=== PATIENT | female | born 1950 | race Caucasian/White ===

== ENCOUNTER 2020-11-15 09:25 | Outpatient (REF) | payer MEDICARE, SELFPAY ==
[2020-11-15 11:13] LABS: MANUAL DIFF FLAG NO
[2020-11-15 11:47] LABS: Basophils Absolute Auto 0.1 X10*3/uL (0.0-0.2); Basophils Percent Auto 0.8 % (0-2); Eosinophils Absolute Auto 0.1 X10*3/uL (0.0-0.4); Eosinophils Percent Auto 1.7 % (0-4); Hematocrit 40.7 % (37-47); Hemoglobin 13.4 g/dl (12.0-16.0); Imm Gran Abs Auto 0.01 X10*3/uL (0.00-0.03); Imm Gran Pct Auto 0.2 % (0.0-0.4); Lymphocytes Absolute Auto 2.7 X10*3/uL (1.2-4.9); Mean Corpuscular HGB Conc 32.9 g/dl (31.0-35.0); Mean Corpuscular Hemoglobin 31.2 pg (27.0-33.0); Mean Corpuscular Volume 94.9 fL (80-98); Monocytes Absolute Auto 0.5 X10*3/uL (0.1-1.2); Monocytes Percent Auto 7.6 % (2-11); Neutrophils Absolute Auto 2.7 X10*3/uL (2.0-8.3); Neutrophils Percent Auto 44.7 % (45-73); Platelet Count 285 X10*3/uL (160-400); Red Blood Count 4.29 X10*6/uL (4.20-5.50); Red Cell Distribution Width 12.8 % (11.0-16.0)
[2020-11-15 12:01] LABS: Thyroid Stimulating Hormone 1.06 uIU/mL (0.32-4.0); Vitamin D 25-OH Total 35.8 ng/mL (>30)
[2020-11-15 12:02] LABS: Alanine Aminotransferase 12 U/L (0-31); Albumin Level 4.4 g/dL (3.5-5.0); Alkaline Phosphatase 106 U/L (39-117); Anion Gap 12 (12-20); Aspartate Amino Transferase 18 U/L (5-31); Bilirubin Total 0.3 mg/dL (0.0-1.0); Blood Urea Nitrogen 14 mg/dL (9-16); Carbon Dioxide 30 mmol/L (22-29); Chloride 104 mmol/L (96-108); Cholesterol 173 mg/dL; Estimated Glomerular Filt Rate > 60; Glucose Fasting 89 mg/dL (60-99); HDL Cholesterol 52 mg/dL; LDL Cholesterol Calculated 86 mg/dl; Potassium 4.6 mmol/L (3.3-5.1); Sodium 141 mmol/L (135-145); Total Protein 7.7 g/dL (6.5-8.0); Triglycerides 177 mg/dL
[2020-11-16 13:57] LABS: Calcium (PTHI) 9.3 mg/dL (8.6-10.4); PTHI 38 pg/mL (14-64)
== END 2020-11-15 09:26 | disposition home or self-care (01) ==
LOC: HO.HMGCLDS 09:25
PROVIDERS: PCP Internal Medicine; Visit Provider Internal Medicine
DX: E78.00 Pure hypercholesterolemia, unspecified (principal); E55.9 Vitamin D deficiency, unspecified; E21.3 Hyperparathyroidism, unspecified
CPT/HCPCS: 36415; 80053; 80061; 82306; 83970; 84443; 85025

== ENCOUNTER 2021-05-17 09:03 | Outpatient (REF) | payer MEDICARE, SELFPAY ==
[2021-05-17 11:34] LABS: MANUAL DIFF FLAG NO
[2021-05-17 11:48] LABS: Basophils Percent Auto 0.6 % (0-2); Eosinophils Absolute Auto 0.1 X10*3/uL (0.0-0.4); Eosinophils Percent Auto 1.5 % (0-4); Hematocrit 40.2 % (37-47); Hemoglobin 13.4 g/dl (12.0-16.0); Imm Gran Abs Auto 0.01 X10*3/uL (0.00-0.03); Imm Gran Pct Auto 0.1 % (0.0-0.4); Lymphocytes Percent Auto 44.2 % (20-40); Mean Corpuscular HGB Conc 33.3 g/dl (31.0-35.0); Mean Corpuscular Hemoglobin 31.5 pg (27.0-33.0); Mean Corpuscular Volume 94.4 fL (80-98); Monocytes Absolute Auto 0.5 X10*3/uL (0.1-1.2); Monocytes Percent Auto 7.7 % (2-11); Neutrophils Absolute Auto 3.1 X10*3/uL (2.0-8.3); Neutrophils Percent Auto 45.9 % (45-73); Platelet Count 257 X10*3/uL (160-400); Red Blood Count 4.26 X10*6/uL (4.20-5.50); Red Cell Distribution Width 13.2 % (11.0-16.0); White Blood Count 6.9 X10*3/uL (4.8-10.8)
[2021-05-17 12:11] LABS: Alanine Aminotransferase 11 U/L (0-31); Albumin Level 4.4 g/dL (3.5-5.0); Alkaline Phosphatase 95 U/L (39-117); Anion Gap 16 (12-20); Aspartate Amino Transferase 17 U/L (5-31); Bilirubin Total 0.6 mg/dL (0.0-1.0); Blood Urea Nitrogen 11 mg/dL (9-16); Calcium 9.6 mg/dL (8.4-10.2); Carbon Dioxide 25 mmol/L (22-29); Chloride 106 mmol/L (96-108); Cholesterol 153 mg/dL; Estimated Glomerular Filt Rate > 60; Glucose Fasting 93 mg/dL (60-99); HDL Cholesterol 44 mg/dL; LDL Cholesterol Calculated 87 mg/dl; Potassium 4.6 mmol/L (3.3-5.1); Sodium 142 mmol/L (135-145); Total Protein 7.5 g/dL (6.5-8.0); Triglycerides 110 mg/dL
[2021-05-17 12:19] LABS: Thyroid Stimulating Hormone 1.08 uIU/mL (0.32-4.0); Vitamin D 25-OH Total 43.4 ng/mL (>30)
[2021-05-22 06:31] LABS: Calcium (PTHI) 9.7 mg/dL (8.6-10.4); PTHI 44 pg/mL (14-64)
== END 2021-05-17 09:04 | disposition home or self-care (01) ==
LOC: HO.HMGCLDS 09:03
PROVIDERS: PCP Internal Medicine; Visit Provider Internal Medicine
DX: E78.00 Pure hypercholesterolemia, unspecified (principal); E55.9 Vitamin D deficiency, unspecified; E21.3 Hyperparathyroidism, unspecified
CPT/HCPCS: 36415; 80053; 80061; 82306; 83970; 84443; 85025

== ENCOUNTER 2021-08-31 13:26 | Outpatient (REF) | payer MEDICARE, SELFPAY ==
--- NOTE | ~2021-08-31 | MM_ITS ---
EXAMINATION: MM SCREENING DIGITAL BREAST TOMOSYNTHESIS, BILATERAL CLINICAL INFORMATION: Screening. Asymptomatic. The lifetime risk of breast cancer based on the Tyrer-Cuzick Model is 4.6%. COMPARISON: Mammography: July 16, 2019 and studies dating back to August 21, 2014 TECHNIQUE: Digital breast tomosynthesis is performed in both the craniocaudal and mediolateral oblique views along with computer-aided detection (CAD). Synthesized 2D images are generated from the tomosynthesis. FINDINGS: There are scattered areas of fibroglandular density (ACR BI-RADS breast composition Category b). There are no significant masses, abnormal calcifications, or other abnormalities. MM/MM tomosynthesis screening BI IMPRESSION: There are no significant changes from prior study. ASSESSMENT: BI-RADS 1: Negative RECOMMENDATION: Routine annual mammography screening. This patient's information was entered into a reminder system with a target due date for their next mammogram.
== END 2021-08-31 13:27 | disposition home or self-care (01) ==
LOC: HO.MAMMO 13:26
PROVIDERS: PCP Internal Medicine; Visit Provider Internal Medicine
DX: Z12.31 Encounter for screening mammogram for malignant neoplasm of breast (principal)
CPT/HCPCS: 77063; 77067

== ENCOUNTER 2022-08-18 09:49 | Outpatient (REF) | payer MEDICARE, SELFPAY ==
[2022-08-18 11:29] LABS: MANUAL DIFF FLAG NO
[2022-08-18 11:50] LABS: Basophils Absolute Auto 0.1 X10*3/uL (0.0-0.2); Basophils Percent Auto 0.9 % (0-2); Eosinophils Absolute Auto 0.1 X10*3/uL (0.0-0.4); Eosinophils Percent Auto 1.9 % (0-4); Hematocrit 40.9 % (37.0-47.0); Hemoglobin 13.6 g/dl (12.0-16.0); Imm Gran Abs Auto 0.01 X10*3/uL (0.00-0.03); Imm Gran Pct Auto 0.1 % (0.0-0.4); Lymphocytes Absolute Auto 3.6 X10*3/uL (1.2-4.9); Lymphocytes Percent Auto 52.6 % (20-40); Mean Corpuscular HGB Conc 33.3 g/dl (31.0-35.0); Mean Corpuscular Hemoglobin 31.1 pg (27.0-33.0); Mean Corpuscular Volume 93.6 fL (80.0-98.0); Mean Platelet Volume 10.2 fL (9.4-12.3); Monocytes Absolute Auto 0.6 X10*3/uL (0.1-1.2); Neutrophils Absolute Auto 2.5 x10*3/uL (2.0-8.3); Neutrophils Percent Auto 35.5 % (45-73); Platelet Count 264 X10*3/uL (160-400); Red Blood Count 4.37 X10*6/uL (4.20-5.50); Red Cell Distribution Width 12.8 % (11.0-16.0); White Blood Count 6.9 X10*3/uL (4.8-10.8)
[2022-08-18 13:35] LABS: Alanine Aminotransferase 14 U/L (0-31); Albumin Level 4.2 g/dL (3.5-5.0); Alkaline Phosphatase 107 U/L (39-117); Anion Gap 13 (12-20); Aspartate Amino Transferase 18 U/L (5-31); Bilirubin Total 0.4 mg/dL (0.0-1.0); Blood Urea Nitrogen 11 mg/dL (9-16); Calcium 9.3 mg/dL (8.4-10.2); Carbon Dioxide 28 mmol/L (22-29); Chloride 105 mmol/L (96-108); Cholesterol 170 mg/dL; Estimated Glomerular Filt Rate > 60; Glucose Fasting 102 mg/dL (60-99); HDL Cholesterol 45 mg/dL; LDL Cholesterol Calculated 96 mg/dl; Potassium 4.5 mmol/L (3.3-5.1); Sodium 141 mmol/L (135-145); Thyroid Stimulating Hormone 1.05 uIU/mL (0.32-4.0); Total Protein 7.5 g/dL (6.5-8.0); Triglycerides 147 mg/dL; Vitamin D 25-OH Total 36.5 ng/mL (>30)
== END 2022-08-18 09:50 | disposition home or self-care (01) ==
LOC: HO.HMGCLDS 09:49
PROVIDERS: PCP Internal Medicine; Visit Provider Internal Medicine
DX: E78.00 Pure hypercholesterolemia, unspecified (principal); E55.9 Vitamin D deficiency, unspecified
CPT/HCPCS: 36415; 80053; 80061; 82306; 84443; 85025

== ENCOUNTER 2022-09-20 08:36 | Outpatient (REF) | payer MEDICARE, SELFPAY ==
--- NOTE | ~2022-09-20 | MM_ITS ---
EXAMINATION: MM SCREENING DIGITAL BREAST TOMOSYNTHESIS, BILATERAL CLINICAL INFORMATION: Screening. Asymptomatic. The lifetime risk of breast cancer based on the Tyrer-Cuzick Model is 5%. COMPARISON: Mammography: 08/31/2021, 07/16/2019, 06/19/2018 TECHNIQUE: Digital breast tomosynthesis is performed in both the craniocaudal and mediolateral oblique views along with computer-aided detection (CAD). Synthesized 2D images are generated from the tomosynthesis. FINDINGS: There are scattered areas of fibroglandular density (ACR BI-RADS breast composition Category b). There are no significant masses, abnormal calcifications, or other abnormalities. Parenchymal pattern is similar to prior studies. There is no developing density or architectural abnormality. The axilla and skin contours are unremarkable. No significant changes. MM/MM tomosynthesis screening BI IMPRESSION: No mammographic evidence of malignancy. ASSESSMENT: BI-RADS 1: Negative RECOMMENDATION: Routine annual mammography screening. This patient's information was entered into a reminder system with a target due date for their next mammogram.
== END 2022-09-20 08:37 | disposition home or self-care (01) ==
LOC: HO.MAMMO 08:36
PROVIDERS: PCP Internal Medicine; Visit Provider Internal Medicine
DX: Z12.31 Encounter for screening mammogram for malignant neoplasm of breast (principal)
CPT/HCPCS: 77063; 77067

== ENCOUNTER → 2022-11-16 07:41 | Outpatient (REF) | payer MEDICARE, SELFPAY ==
--- NOTE | 2022-11-16 | PFT_ITS ---
INDICATION: Shortness of breath. SPIROMETRY: FEV1 to FVC of 88% with an FEV1 of 1.71 L, which is 84% predicted and FVC of 1.96 L which is 73% predicted. No significant response to bronchodilators noted. Maximum voluntary ventilation 96% predicted. LUNG VOLUMES: Total lung capacity 66% predicted with an expiratory residual volume of 73% predicted. DIFFUSION CAPACITY: DLCO 87% predicted. COMPARISON: None available. INTERPRETATION: There is no obstructive ventilatory defect. No significant response to bronchodilator noted and a normal maximum voluntary ventilation. However, the patient does have a restrictive ventilatory defect consistent with moderate restricted lung disease. Underlying parenchymal lung conditions need to be considered. Diffusion capacity is within normal limits. Clinical correlation warranted. Vikram Skelton MD MR/MODL / [id number]
--- NOTE | 2022-11-16 07:58 | CA_ITS ---
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 The calculated ejection fraction is 66% by biplane method. - Evidence suggests grade I (mild) diastolic dysfunction. - No obvious valvular pathology seen on this study. - Mild pulmonary hypertension is present. Findings Left Ventricle Normal left ventricular cavity size. The left ventricular systolic function is normal. The calculated ejection fraction is 66% by biplane method. There is no evidence of regional wall motion abnormalities. E/E prime ratio is >15, consistent with elevated filling pressures. Evidence suggests grade I (mild) diastolic dysfunction. There is mild septal asymmetric hypertrophy. LV peak GLS -22.5%. Right Ventricle Normal right ventricular cavity size and systolic function. Atria Both atria are normal in size. Aortic Valve There is a normal trileaflet aortic valve. There is no aortic valve stenosis. There is no aortic valve regurgitation. Mitral Valve The mitral valve appears normal. There is trace mitral valve regurgitation. There is no mitral valve stenosis. Pulmonic Valve The pulmonic valve is likely normal. Tricuspid Valve Normal tricuspid valve structure. There is mild tricuspid valve regurgitation. Mild pulmonary hypertension is present. Great Vessels The asc aorta is normal in size. Venous The inferior vena cava is normal in size and collapses greater than 50% with inspiration. Pericardium/Pleural There is no evidence of pericardial effusion. Prior Study Comparison No prior study available for comparison. Recommendations, Care & Conclusions No obvious valvular pathology seen on this study. Measurements 2D Linear Measurements IVSd: 1.11 0.6-0.9/0.6-1.0 cm LVIDd: 3.77 3.9-5.3/4.2-5.9 cm LVIDd Index: 2.04 2.4-3.2/2.2-3.1 cm/m2 LVIDs: 1.99 2.0-3.6 cm LVPWd: 0.90 0.7-1.1 cm LA Diam: 3.20 2.7-3.8/3.0-4.0 cm LAIDs Index: 1.73 1.5-2.3 cm/m2 LV Mass: 144.99 67-162/88-224 g LV Mass Index: 78.38 43-95/49-115 g/m2 LVOT Diam: 1.90 3.0+(-)1.3 cm 2D Systolic Function EF 4C: 66.40 >55% EF 2C: 63.10 >55% EF BiP: 66.20 >55% Mitral Valve MV Pk E: 0.90 MV PK A: 1.09 MV Decel Time: 189.00 E/A: 0.80 E'Lateral: 7.62 E'Medial: 5.00 E/E' Med: 18.10 E/E' Lat: 11.90 PHT: 55.00 MVA PHT: 4.00 Decel Brooke: 4.78 Aortic Valve AoV Pk Yair: 1.60 AoV Mn Yair: 1.05 AoV VTI: 0.38 AoV Pk Grad: 10.00 Aov Mn Grad: 5.00 NAHID Cont.VTI: 2.02 LVOT LVOT Pk Yair: 1.07 LVOT Mn Yair: 0.70 LVOT VTI: 0.27 LVOT Pk Grad: 5.00 LVOT Mn Grad: 2.00 LVOT Diam: 1.90 LVOT Area: 2.84 Diastolic Function MV Pk E: 0.90 MV Pk A: 1.09 E/A: 0.80 E'Medial: 5.00 E/E' Med: 18.10 E' Laterial: 7.62 E/E' Lat: 11.90 Right Ventricle TAPSE (mm): 2.73 TVS' Yair: 12.40 Tricuspid Valve TR Pk Yair: 3.11 TR Pk Grad: 39.00 RA Press: 8.00 RVSP: 47.00 Great Vessels Aorta Sinus of Valsalva: 2.81 2.0-3.[address] [place]: 2.24 1.7-3.4 cm Ao Asc: 3.20 2.1-3.4 cm Updated in Other Vendor System with Status of Final Kyle Whitman MD electronically signed on 11/18/2022 11:00:18 AM with status of Final
== END ==
LOC: HO.CARD 07:41
PROVIDERS: PCP Internal Medicine; Visit Provider Internal Medicine
DX: R06.02 Shortness of breath (principal)
CPT/HCPCS: 93306; 93356; 94060; 94727; 94729

== ENCOUNTER 2023-05-07 09:17 | Outpatient (REF) | payer MEDICARE, SELFPAY ==
--- NOTE | ~2023-05-07 | XR_ITS ---
EXAMINATION: XR CHEST CLINICAL INFORMATION: Shortness of breath COMPARISON: None available. TECHNIQUE: 2 views of the chest were obtained. FINDINGS: Heart size is normal. There is no gross pneumothorax. No pleural effusion. No focal consolidation to suggest pneumonia. Moderate degenerative changes in the thoracic spine with thoracolumbar scoliosis. Degenerative changes on limited imaging of the right shoulder with soft tissue calcification lateral to the humeral head suggestive of rotator cuff pathology. XR/XR chest 2V IMPRESSION: No evidence of pneumonia. Degenerative changes on limited imaging of the right shoulder with soft tissue calcification lateral to the humeral head suggestive of rotator cuff pathology.
[2023-05-07 10:11] LABS: MANUAL DIFF FLAG NO
[2023-05-07 10:19] LABS: Basophils Percent Auto 0.7 % (0-2); Eosinophils Absolute Auto 0.1 X10*3/uL (0.0-0.4); Eosinophils Percent Auto 1.8 % (0-4); Hematocrit 40.3 % (37.0-47.0); Hemoglobin 13.5 g/dl (12.0-16.0); Imm Gran Abs Auto 0.02 X10*3/uL (0.00-0.03); Imm Gran Pct Auto 0.3 % (0.0-0.4); Lymphocytes Absolute Auto 2.7 X10*3/uL (1.2-4.9); Lymphocytes Percent Auto 44.6 % (20-40); Mean Corpuscular HGB Conc 33.5 g/dl (31.0-35.0); Mean Corpuscular Hemoglobin 31.8 pg (27.0-33.0); Mean Platelet Volume 9.5 fL (9.4-12.3); Monocytes Absolute Auto 0.6 X10*3/uL (0.1-1.2); Neutrophils Absolute Auto 2.7 x10*3/uL (2.0-8.3); Neutrophils Percent Auto 43.6 % (45-73); Platelet Count 260 X10*3/uL (160-400); Red Blood Count 4.24 X10*6/uL (4.20-5.50); Red Cell Distribution Width 12.9 % (11.0-16.0); White Blood Count 6.1 X10*3/uL (4.8-10.8)
[2023-05-07 10:22] LABS: Prothrombin Time 11.6 SEC (11.1-13.3)
[2023-05-07 11:01] LABS: Alanine Aminotransferase 9 U/L (0-31); Albumin Level 4.2 g/dL (3.5-5.0); Alkaline Phosphatase 99 U/L (39-117); Anion Gap 11 (12-20); Aspartate Amino Transferase 18 U/L (5-31); Bilirubin Total 0.3 mg/dL (0.0-1.0); Blood Urea Nitrogen 16 mg/dL (9-16); Calcium 9.9 mg/dL (8.4-10.2); Carbon Dioxide 29 mmol/L (22-29); Chloride 105 mmol/L (96-108); Cholesterol 181 mg/dL (<200); Estimated Glomerular Filt Rate > 60; Glucose Fasting 78 mg/dL (60-99); HDL Cholesterol 50 mg/dL (>40); LDL Cholesterol Calculated 89 mg/dL (<100); Potassium 4.2 mmol/L (3.3-5.1); Sodium 141 mmol/L (135-145); Triglycerides 211 mg/dL (<150)
[2023-05-07 11:17] LABS: Vitamin D 25-OH Total 43.9 ng/mL (>30)
== END 2023-05-07 09:18 | disposition home or self-care (01) ==
LOC: HO.RESP 09:17
PROVIDERS: PCP Internal Medicine; Visit Provider Internal Medicine
DX: E78.00 Pure hypercholesterolemia, unspecified (principal); E55.9 Vitamin D deficiency, unspecified; R06.02 Shortness of breath; E21.3 Hyperparathyroidism, unspecified
CPT/HCPCS: 36415; 71046; 80053; 80061; 82306; 84443; 85025; 85610

== ENCOUNTER 2023-09-26 09:05 | Outpatient (REF) | payer MEDICARE, SELFPAY | END 2023-09-26 09:06 | disposition home or self-care (01) | LOC: HO.MAMMO 09:05 | PROVIDERS: PCP Internal Medicine; Visit Provider Internal Medicine | DX: Z12.31 Encounter for screening mammogram for malignant neoplasm of breast (principal) | CPT/HCPCS: 77063; 77067 ==

== ENCOUNTER → 2023-09-26 09:30 | Outpatient (BNV) | payer MEDICARE, SELFPAY | PROVIDERS: PCP Internal Medicine; Visit Provider Radiology Diagnostic Radiology | DX: Z12.31 Encounter for screening mammogram for malignant neoplasm of breast (principal) | CPT/HCPCS: 77063; 77067 ==

== ENCOUNTER 2023-10-05 10:29 | Outpatient (REF) | payer MEDICARE, SELFPAY ==
[2023-10-05 14:21] LABS: Parathyroid Hormone Intact 44.4 pg/mL (8.7-77.1)
== END 2023-10-05 10:30 | disposition home or self-care (01) ==
LOC: HO.HMGCLDS 10:29
PROVIDERS: PCP Internal Medicine; Visit Provider Internal Medicine
DX: E21.3 Hyperparathyroidism, unspecified (principal)
CPT/HCPCS: 36415; 83970

== ENCOUNTER 2023-10-10 10:12 | Outpatient (REF) | payer MEDICARE, SELFPAY ==
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
== END 2023-10-10 10:13 | disposition home or self-care (01) ==
LOC: HO.XRAY 10:12
PROVIDERS: PCP Internal Medicine; Visit Provider Internal Medicine
DX: E66.09 Other obesity due to excess calories (principal)
CPT/HCPCS: 73562

== ENCOUNTER 2024-04-03 08:54 | Outpatient (REF) | payer MEDICARE, SELFPAY ==
[2024-04-03 10:49] LABS: MANUAL DIFF FLAG NO
[2024-04-03 11:17] LABS: Basophils Absolute Auto 0.1 X10*3/uL (0.0-0.2); Eosinophils Absolute Auto 0.2 X10*3/uL (0.0-0.4); Eosinophils Percent Auto 2.6 % (0-4); Hematocrit 40.4 % (37.0-47.0); Hemoglobin 13.8 g/dl (12.0-16.0); Imm Gran Abs Auto 0.02 X10*3/uL (0.00-0.03); Imm Gran Pct Auto 0.3 % (0.0-0.4); Lymphocytes Absolute Auto 2.9 X10*3/uL (1.2-4.9); Lymphocytes Percent Auto 45.7 % (20-40); Mean Corpuscular HGB Conc 34.2 g/dl (31.0-35.0); Mean Corpuscular Hemoglobin 31.5 pg (27.0-33.0); Mean Corpuscular Volume 92.2 fL (80.0-98.0); Mean Platelet Volume 10.4 fL (9.4-12.3); Monocytes Absolute Auto 0.6 X10*3/uL (0.1-1.2); Monocytes Percent Auto 9.3 % (2-11); Neutrophils Absolute Auto 2.6 x10*3/uL (2.0-8.3); Neutrophils Percent Auto 41.1 % (45-73); Platelet Count 267 X10*3/uL (160-400); Red Blood Count 4.38 X10*6/uL (4.20-5.50); Red Cell Distribution Width 12.9 % (11.0-16.0); White Blood Count 6.3 X10*3/uL (4.8-10.8)
[2024-04-03 11:38] LABS: Parathyroid Hormone Intact 67.4 pg/mL (8.7-77.1)
[2024-04-03 11:49] LABS: Alanine Aminotransferase 12 U/L (0-31); Albumin Level 4.3 g/dL (3.5-5.0); Alkaline Phosphatase 93 U/L (39-117); Anion Gap 14 (12-20); Aspartate Amino Transferase 21 U/L (5-31); Bilirubin Total 0.6 mg/dL (0.0-1.0); Blood Urea Nitrogen 19 mg/dL (9-16); Calcium 9.4 mg/dL (8.4-10.2); Carbon Dioxide 24 mmol/L (22-29); Chloride 107 mmol/L (96-108); Cholesterol 171 mg/dL (<200); Estimated Glomerular Filt Rate > 60; Glucose Fasting 96 mg/dL (60-99); HDL Cholesterol 46 mg/dL (>40); LDL Cholesterol Calculated 104 mg/dL (<100); Potassium 4.1 mmol/L (3.3-5.1); Sodium 141 mmol/L (135-145); Total Protein 7.8 g/dL (6.5-8.0); Triglycerides 107 mg/dL (<150)
[2024-04-03 11:59] LABS: Vitamin D 25-OH Total 37.5 ng/mL (>30)
== END 2024-04-03 08:55 | disposition home or self-care (01) ==
LOC: HO.HMGCLDS 08:54
PROVIDERS: PCP Internal Medicine; Visit Provider Internal Medicine
DX: E21.3 Hyperparathyroidism, unspecified (principal); E78.00 Pure hypercholesterolemia, unspecified; E55.9 Vitamin D deficiency, unspecified
CPT/HCPCS: 36415; 80053; 80061; 82306; 83970; 84443; 85025

== ENCOUNTER 2024-09-30 08:50 | Outpatient (REF) | payer MEDICARE, SELFPAY | END 2024-09-30 08:51 | disposition home or self-care (01) | LOC: HO.MAMMO 08:50 | PROVIDERS: PCP Internal Medicine; Visit Provider Internal Medicine | DX: Z12.31 Encounter for screening mammogram for malignant neoplasm of breast (principal) | CPT/HCPCS: 77063; 77067 ==

== ENCOUNTER → 2024-09-30 09:00 | Outpatient (BNV) | payer MEDICARE, SELFPAY | PROVIDERS: PCP Internal Medicine; Visit Provider Internal Medicine | DX: Z12.31 Encounter for screening mammogram for malignant neoplasm of breast (principal) | CPT/HCPCS: 77063; 77067 ==

== ENCOUNTER 2024-10-08 09:08 | Outpatient (AMB) | payer MEDICARE, SELFPAY ==
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
[2024-10-08 09:13] VITALS: BP 126/62; PULSE 73; TEMP 36.3; O2SAT 97; BMI 35.1
--- OUTSIDE RECORDS SUMMARY | 2024-10-08 10:33 | XMS_ITS ---
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 Name Role Phone Keshav Fernandez Primary Care Provider [phone] ALLERGIES No Known Allergies REASON FOR VISIT 6 month f/u, Follow up hypercholesterolemia MEDICATIONS Medication SIG (Take, Route, Frequency, Duration) Notes Start Date End Date Status Atorvastatin Calcium 10 MG 1 tablet Oral ly Once a day Active Vitamin D 2000 UNIT 1 capsule Orally Onc e a day 07/11/2017 Active SOCIAL HISTORY Tobacco Use: Social History Observation Description Date Details (start date - stop date) Never Smoker NA - NA Sex Assigned At : Social History Observation Description Sex Assigned At Unknown Tobacco Use/Smoking Question Answer Notes Patient is a nonsmoker Additional Findings: Tobacco Non-User Cu rrent non-smoker, currently using no form of tobacco Alcohol Screen Question Answer Notes Did you have a drink contain ing alcohol in the past year? Yes How often did you have a dri nk containing alcohol in the past year? Monthly or less (1 point) How many drinks did you have on a typical day when you were drinking in the past year? 1 or 2 drinks (0 point) How often did you have 6 or more drinks on one occasion in the past year? Never (0 point) Points 1 Interpretation Negative VITAL SIGNS BMI 34.76 kg/m2 04/09/2024 Blood pressure systolic 120 mm Hg 04/09/20 24 Blood pressure diastolic 80 mm Hg 024 Height 61.50 in 04/09/2024 Weight 187 lbs 04/09/2024 Encounters Encounter Location Date Provider Diagnosis Keshav Fernandez DO, FACP [address], [place] [id number] 04/09/2024 Keshav Fernandez Hypercholesterolemia E78.00 ; Hyperparathyroidism E21.3 ; HARDY (obstructive sleep apnea) G47.33 and Vitamin D insufficiency E55.9 ASSESSMENTS Encounter Date Diagnosis Assessment Notes Treatment Notes Treatment Clinical Notes 04/09/2024 Hypercholesterolemia (ICD-10 - E78.00) 04/09/2024 Hyperparathyroidism (ICD-10 - E21.3) PTH and calcium levels are normal 04/09/2024 HARDY (obstructive sle ep apnea) (ICD-10 - G47.33) CPAP nightly 04/09/2024 Vitamin D insufficie ncy (ICD-10 - E55.9) PLAN OF TREATMENT Medication Medication Name Sig Start Date Stop Date Notes Atorvastatin Calcium 10 MG 1 tablet Orally Once a day Vitamin D 2000 UNIT 1 capsule Orally Once a day 07/11/2017 Treatment Notes Assessment Notes Hyperparathyroidism PTH and calcium leve ls are normal HARDY (obstructive sleep apnea) CPAP night ly Next Appt Details Follow Up: 6 Months, Reason: follow up visit Progress Notes * Examination Category Sub-Category Detail Notes General Examination GENERAL APPEARANCE: in no ac [place] distress, well developed, well nourished HEAD: normocephalic, atrau matic HEART: no murmurs, regular rate and rhythm, S1, S2 normal LUNGS: clear to auscultatio n bilaterally ABDOMEN: normal, bowel sounds present, soft, nontender, nondistended SKIN: warm and dry EXTREMITIES: no edema PSYCH: alert, oriented, cog nitive function intact
--- OUTSIDE RECORDS SUMMARY | 2024-10-08 10:33 | XMS_ITS | Patient Health Record ---
[facility] Organization [facility] Address [address] [place] [address] Care Team Providers Care Stretch Press Operator Name Role Phone Edson Aj Primary Care Provider [phone] Vibha Marquez Unavailable [phone] Allergies No Known Allergies Reason For Referral No Information Medications Medication SIG (Take, Route, Frequency, Duration) Notes Start Date End Date Status Piroxicam 20 MG 1 capsule with food Orally Once a day for 30 day(s) Unknown Pravastatin Sodium 10 MG 1 tablet Orally Once a day for 30 day(s) Unknown Lamisil 250 250mg 1 tablet oral daily for 90 days 11/29/2016 Unknown vitamin D Unknown Vitamin D3 Active Atorvastatin Calcium Active Social History Tobacco Use: Social History Observation Description Date Details (start date - stop date) Never Smoker NA - NA Tobacco Use/Smoking Question Answer Notes Are you a: nonsmoker Additional Findings: Tobacco Non-User Current no n-smoker Tobacco use other than smoking: Question Answer Notes Are you an other tobacco user? No Problems Problem Type SNOMED Code ICD Code Onset Dates Problem Status W/U Status Risk Notes Problem Acquired hallux valgus (46311421) Hallux valgus (acquired), right foot (M20.11) Active confirmed Vital Signs Blood pressure diastolic 82 mm Hg 09/24/2024 Height 5 ft 2 in in 09/24/2024 Blood pressure systolic 137 mm Hg 09/24/2024 Weight 185 lbs 09/24/2024 BMI 33.83 kg/m2 09/24/2024 Encounters Encounter Location Date Provider Diagnosis [facility] [address] [place] [address] 09/24/2024 Vibha Marquez Pain in right toe(s) M79.674 ; Onychomycosis B35.1 ; Pain in left toe(s) M79.675 and Ingrown nail L60.0 [facility] [address] [place] [address] 09/09/2024 Vibha Marquez Assessments Encounter Date Diagnosis (ICD Code) Assessment Notes Treatment Notes Treatment Clinical Notes Section Notes 09/24/2024 Pain in right toe(s) (ICD-10 - M79.674) 09/24/2024 Onychomycosis (ICD-10 - B35.1) 09/24/2024 Pain in left toe(s) (ICD-10 - M79.675) 09/24/2024 Ingrown nail (ICD-10 - L60.0) Plan Of Treatment Pending Test Test Name Order Date X ray : Foot, left 2V 10/23/2012 X ray : Foot, right 2V 10/23/2012 36566-Eeozzdst Plate 10/23/2012 68769-Lxyjvrcd Plate 11/15/2016 44066-Kkjpfhlk Plate 11/29/2016 86113- Debride <25 sq cm 11/29/2016 Next Appt Details Provider Name:Vibha merritt, 03/24/2025 09:00:00 AM, [address] [place], [address], Insurance Providers Payer Name Payer Address Payer Phone Subscriber Number Group Number Insured Name Patient Relationship to Insured Coverage Start Date Coverage End Date Medicare [facility] [address] [place] [address] [id number] Mayra Peguero Self - patient is the insured 7 [employer] [address] [place] [address] [id number] Mayra Peguero Self - patient is the insured Medical (General) History Medical History History ICD Code cholesterol chicken pox Anemia Measles Chicken pox Surgical History Surgery Date(Month/Year) parathyroid
--- OUTSIDE RECORDS SUMMARY | 2024-10-08 10:33 | XMS_ITS ---
Author Organization Keshav Fernandez DO, [facility] Address [address] [place], [place] [id number] Care Team Providers Care Parking Lot Manager Name Role Phone Keshav Fernandez Primary Care Provider REASON FOR VISIT 6 month f/u Encounters Encounter Location Date Provider Diagnosis Keshav Fernandez DO, FACP [address] [place] [phone] 10/08/2024 Keshav Fernandez PLAN OF TREATMENT No Information
--- OUTSIDE RECORDS SUMMARY | 2024-10-08 10:33 | XMS_ITS ---
Author Organization Keshav Fernandez DO, [facility] Address [address] [place], [place] [id number] Care Team Providers Care Desk Interviewer Name Role Phone Keshav Fernandez Primary Care Provider RESULTS Component Value Reference Range Notes Parathyroid Hormone Intact Reviewed date:04/03/2024 05:37:32 PM Interpretation:Normal Performing Lab:[facility], [address] [place] [phone] Notes/Report: Parathyroid Hormone Intact 67.4 8.7-77.1 pg/mL REASON FOR VISIT Refill and message MEDICATIONS Medication SIG (Take, Route, Frequency, Duration) Notes Start Date End Date Status Atorvastatin Calcium 10 MG 1 tablet Oral ly Once a day for 90 days Active Encounters Encounter Location Date Provider Diagnosis Keshav Fernandez DO, [facility] [address] [place], [place] [phone] 03/28/2024 Keshav Fernandez Hyperparathyroidism E21.3 ; Hypercholesterolemia E78.00 and Vitamin D insufficiency E55.9 ASSESSMENTS Encounter Date Diagnosis Assessment Notes Treatment Notes Treatment Clinical Notes 03/28/2024 Hyperparathyroidism (ICD-10 - E21.3) 03/28/2024 Hypercholesterolemia (ICD-10 - E78.00) 03/28/2024 Vitamin D insufficie ncy (ICD-10 - E55.9) PLAN OF TREATMENT Medication Medication Name Sig Start Date Stop Date Notes Atorvastatin Calcium 10 MG 1 tablet Oral ly Once a day for 90 days
--- OUTSIDE RECORDS SUMMARY | 2024-10-08 10:33 | XMS_ITS ---
Author Organization [facility] Address [address] [place] [address] Care Team Providers Care Mill Feeder Name Role Phone Edson Aj Primary Care Provider Vibha Marquez Unavailable [phone] Allergies No Known Allergies REASON FOR VISIT Fungal Nails, Ingrown Nail Medications Medication SIG (Take, Route, Frequency, Duration) [...] Are you an other tobacco user? No Vital Signs Height 5 ft 2 in in 09/24/2024 Weight 185 lbs 09/24/2024 BMI 33.83 kg/m2 09/24/2024 Blood pressure systolic 137 mm Hg 09/24/19 25 Blood pressure diastolic 82 mm Hg 025 Encounters Encounter Location Date Provider Diagnosis [facility] [address] [place] [address] 09/24/2024 Vibha Marquez Pain in right toe(s) M79.674 ; Onychomycosis B35.1 ; Pain in left toe(s) M79.675 and Ingrown nail L60.0 Assessments Encounter Date Diagnosis (ICD Code) Assessment Notes Treatment Notes Treatment Clinical Notes Section Notes 09/24/2024 Pain in right toe(s) (ICD-10 - M79.674) 09/24/2024 Onychomycosis (ICD-10 - B35.1) 09/24/2024 Pain in left toe(s) (ICD-10 - M79.675) 09/24/2024 Ingrown nail (ICD-10 - L60.0) Plan Of Treatment Next Appt Details Follow Up: 6 Months, Reason: Provider Name:Vibha merritt, 03/24/2025 09:00:00 AM, [address] [place] [address], [phone], Procedure Notes * Category Sub-Category Detail Notes Nail Avulsion Procedure A fine sterile e levator was placed between the eponychium, nail fold, and nail plate to separate the structures. A sterile nail splitter, and/or sterile 316 blade, was then used to longitudinally section the nail along its entire length through the eponychium to the area under the nail fold. The offending portion of nail was from the nail bed with a rolling action and then removed with a hemostat. No underlying bone was identified. There was minimal bleeding as hemostasis was achieved through the temporary use of either a digital tourniquet or the aforementioned local with epinephrine. A bacitracin sterile dressing was applied. Local wound aftercare instructions were discussed and dispensed. The patient was informed of both conservative and future surgical procedures to prevent recurrence. Tylenol or Motrin was recommended for pain or discomfort (70323) Anesthesia 5cc of 1 percent Lid ocaine Plain local anesthesic utilizing aseptic technique Location Medial nail border, T5 Progress Notes * SHARLENEBrenne DDOB:1949 (74 yo F)Acc No.[id number]:09/24/2024 Progress Notes Patient:?Mayra TORO Provider:?Vibha Marquez DPM :1950???Age:74 Y???Sex:Female D ate:09/24/2024 Address:[address] [place] [address] [phone] Pcp:Edson Aj Subjective: * Chief Complaints: * ???Fungal NailsIngrown Nail * HPI: ???Painful Nails:?Nature:?aching, tender, discolored, thick.?Location:?Great toe, Right foot.?Course:?worse.?Aggravated by:?shoegear causing difficulty standing/walking.?Treatments:?none.? * ROS:?General/Constitutional:?Nausea?denies.?Vomiting?denies.?Hunger Thirst?denies.?Loss appetite?denies.?Chills?denies.?Fatigue?denies.?Fever?denies.?Night Sweats?denies.?Unexplained weight loss?denies.?Unexplained weight gain?denies.?HEENTM:?Dentures?denies.?Dizziness?denies.?Glasses/contacts?admits.?Retinopathy?de nies.?Blurred/double vision?denies.?TMJ?denies.?Discharge/drainage?denies.?Implants?denies.?Sore throat?denies.?Dental implants?denies.?Hard of hearing ?denies.?Difficulty chewing/swallowing/speaking?denies.?Nose bleeds?denies.?Sore mouth?denies.?Respiratory:?On Oxygen?denies.?Pneumonia/pleurisy?denies.?Bronchitis?denies.?Emphysema?denies.?C oughing?denies.?Cough blood?denies.?Shortness of breath?admits.?Wheezing?denies.?Cardiovascular:?Pacemaker?denies.?MVP?denies.?WPW?denies.?CHF?denies.?Heart attack?denies.?Septal defect?denies.?Rapid beat?denies.?Chest pain ?denies.?Atrial Fib.?denies.?Murmur/Palpitations?denies.?Gastrointestinal:?Hemorrhoids?denies.?Stomach/Abdominal pain?denies.?Dark blood stool?denies.?Irritable bowel ?denies.?Constipation?denies.?Diarrhea?denies.?Hematology:?Swelling?denies.?Clots?denies.?Varicose Veins?denies.?Bruising?denies.?Bleeding problem?denies.?Genitourinary:?Blood urine?denies.?Frequent/Painfu/urination/bladder control?admits.?Kidney stones?denies.?Infection (UTI)?denies.?Nephropathy?denies.?sex trans dis (STD)?denies.?Prostate?denies.?Musculoskeletal:?Hammertoes?denies.?Bunions?admits.?Back Pain?denies.?Muscle Cramps/ Resting?denies.?Muscle cramps / walking?denies.?Generalized aches and pains?denies.?Weakness?denies.?Integ.:?Salcido?denies.?Scars?denies.?Corns/calluses?denies.?Ingrown nails?admits.?Painful nails?denies.?Open Sores?denies.?Rashes?denies.?Neurologic:?Difficulty sleeping?denies.?Brain disorder?denies.?Numbness?denies.?Balance trouble?denies.?Confusion?denies.?Fainting/blackouts?denies.?Tingling?denies.?Tr emors?denies.? * Medical History:? * Surgical History:?parathyroi d * Hospitalization/Major Diagno stic Procedure:?Denies Past Hospitalization * Family History:?Mother: dece ased, diabetes, stroke, foot problems, heart attack, high blood pressure.?Father: , cancer.? * Social History:?Tobacco Use:?Tobacco Use/Smoking?Are you a:?nonsmoker ?Additional Findings: Tobacco Non-User?Current non-smoker ?Tobacco use other than smoking?Are you an other tobacco user??No ???Drugs/Alcohol:?Drugs?Have you used drugs other than those for medical reasons in the past 12 months??No ?Alcohol Screen?Did you have a drink containing alcohol in the past year?: Yes, How often did you have a drink containing alcohol in the past year?: Monthly or less (1 point), Points: 1, Interpretation: Negative.?Miscellaneous:?Caffeine: yes, frequency:, 3-5 cups per day. ?Children: yes, two. ?Exercise: no. ?Marital status: . 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 * Medications:?TakingAtorvasta tin Calcium Vitamin D3 Taking Atorvastatin Calcium Taking Vitamin D3 Unknownvitamin D Lamisil 250 250mg tablet 1 tablet oral daily Pravastatin Sodium 10 MG Tablet 1 tablet Orally Once a day Piroxicam 20 MG Capsule 1 capsule with food Orally Once a day Medication List reviewed and reconciled with the patientUnknown vitamin D Unknown Lamisil 250 250mg tablet 1 tablet oral daily Unknown Pravastatin Sodium 10 MG Tablet 1 tablet Orally Once a day Unknown Piroxicam 20 MG Capsule 1 capsule with food Orally Once a day Medication List reviewed and reconciled with the patient * Allergies:?N.K.D.A.yes[Aller gies Verified] Objective: * Vitals:?Ht: 5 ft 2 in, Wt:18 5, BMI:33.83, Shoe size: 7.5W, BP:137/82mm Hg, Ht- cm: 157.48 cm, Wt-k.91 kg. * Examination: ???Nails: ?NAILS are:?Elongated, overgrown, dystrophic, lytic, greater than 3mm thick, discolored and friable with crumbly malodorous subungual debris, with pain on palpation, TA, T1, T2, T3, T4, T5, T6, T7, T8, T9.?General Examination: ?GENERAL APPEARANCE:?Reveals a pleasant, alert, well-nourished, well- developed, well hydrated individual, who demonstrates proper attention to hygiene/body habitus, and is in no acute distress, Pt serves as own?historian for office visit today.?ORIENTED:?person, place, and time.?FOOT EXAM:?Footwear Evaluation?Neurological: ?SENSORY:?Neurological exam reveals intact sensorium, pain sensation normal, vibration sensation intact, pinprick sensation is normal in the lower extremities, Pt denies, anesthesia, burning, paresthesia, tingling, B/L.?Vascular: ?DP PULSES (B):?3/4, B/L.?PT PULSES (B):?3/4, B/L.?CAPILLARY FILL TIME:?immediate, all digits, B/L.?TROPHIC CONDITION-TEXTURE/ELASTICITY/TURGOR/HAIR GROWTH (B):?normal, B/L.?TEMPERTURE GRADIENT (C):?warm to cool, proximal to distal, B/L.?PIGMENTATION:?normal, B/L.?EDEMA (C):?2/4, Right, Foot.?Dermatologic: ?SKIN FINDINGS:?Skin exam reveals normal texture, elasticity, and turgor. There are no masses. The interspaces are clear.?Orthopedic: ?MUSCLE STRENGTH:?5/5 all groups in a symmetrical fashion , B/L.?FOOTWEAR:?good condition.?Ingrown Nail: ?INSPECTION:?Reveals nail incurvation, pain on palpation, groove hypertrophy, Medial nail border, T5.? Assessment: * Assessment: 1.?Pain in right toe(s) - M7 9.674???2.?Onychomycosis - B35.1 (Primary)???3.?Pain in left toe(s) - M79.675???4.?Ingrown nail - L60.0??? Plan: * Treatment: * Procedures:?Nail Avulsion:?Location?Medial nail border, T5.?Anesthesia?5cc of 1 percent Lidocaine Plain local anesthesic utilizing aseptic technique.?Procedure?A fine sterile elevator was placed between the eponychium, nail fold, and nail plate to separate the structures. A sterile nail splitter, and/or sterile 316 blade, was then used to longitudinally section the nail along its entire length through the eponychium to the area under the nail fold. The offending portion of nail was from the nail bed with a rolling action and then removed with a hemostat. No underlying bone was identified. There was minimal bleeding as hemostasis was achieved through the temporary use of either a digital tourniquet or the aforementioned local with epinephrine. A bacitracin sterile dressing was applied. Local wound aftercare instructions were discussed and dispensed. The patient was informed of both conservative and future surgical procedures to prevent recurrence. Tylenol or Motrin was recommended for pain or discomfort (01029).? * Procedure Codes:?01550 Avuls ion Plate, Modifiers: XS * Preventive Medicine:? ??Counseling:?Discussion:?-03: Office or other outpatient visit for the evaluation and management of a new patient, which required a medically appropriate history and/or examination and LOW level of DECISION MAKING for: 1 STABLE ACUTE UNCOMPLICATED PROBLEM, 2 OR MORE MINOR PROBLEMS, OR 1 STABLE CHRONIC PROBLEM, THAT POSE(S) A LOW RISK FOR MORBIDITY/MORTALITY. The visit on the day of the encounter encompassed interpreting the data and educating the patient as to the nature of their condition, treatment options available according to their individual PMH, meds, allergies, and overall health/living conditions, as well as any potential risks or complications that may occur from a failure to adhere to, and participate in, the recommended course of therapy. The discussion included a complete verbal, and/or written explanation of the examination results, any x-rays taken, the proposed diagnosis, and outline of the treatment plan. A schedule for future care needs was also explained. The patient verbalized an understanding of the instructions at this time and agreed to be an active participant in their treatment. If the patient should think of any questions or concerns after the visit, I have encouraged the patient to call the office.?Abscess/Paraonychia/Ingrown Nails:?We discussed the possible etiologies (genetic, improper nail care, shoe gear, nail trauma) which may lead to ingrown nails and/or paronychial infections. We discussed and reviewed palliative/nonsurgical/deferring definitive treatment (vs) undergoing the treatment procedures of nail avulsion(s) or PNA, which may prevent recurrence and give more lasting results. The possible risks/complications such as worsened condition/delayed healing/nonhealing/failure/recurrence/infection, the potential benefits/advantages of decreased pain/deformity, as well as alterative treatment options including applying nail softening agents/nail groove packing were discussed. No guarantees were given regarding any outcome for any procedure. The patient was educated in the length of time for the affected nail to regrow once completely healed from a nail avulsion procedure. Once the condition has completely healed, the patient was consulted on proper nail care. Patient questions such as details of each procedure, varying time to heal, activity post procedure, and shoe gear were discussed and the answers were verbally confirmed fully understood.?Fungal Nail Counseling:?The patient was counseled on the diagnosis, potential etiologies (including, but not limited to, environmental factors, genetic, immune deficiency), and the multiple treatment options for Onychomycosis. We discussed the risks and benefits of each option from performing no treatment, to ultraviolet light shoe treatment, to laser nail treatment, to applying topical antifungals, to taking oral antifungal medication, to surgical removal of the involved nail(s) with or without performing a matricectomy, or any combination thereof. We discussed the advantages and disadvantages of each of possible treatment and importance for adherence to all the recommended therapies for optimum success. This includes the necessity for weekly emery board self nail home debridements, and control the nail and skin environment as much as possible by only using a fresh, dry pair of shoes/socks each day, as well as keeping the skin as dry as possible through the use of sprays/powders if necessary. The patient was instructed to discard the emery board after use to prevent reinfection of the involved nail(s). We discussed the mycological and visual clinical effectiveness of topical vs oral antifungal treatments as well as each ones potential side effects and/or any patient- specific medication interactions. We discussed the reasons behind the important requirement of regular liver function testing with oral antifungal therapy for safety. Patient questions regarding use, dosage, successful outcomes, blood tests, and possible pharmaceutical interactions were reviewed and the patient verbalized that all answers were clearly understood, The patient presently prefers topical treatment, due to use of cholesterol meds.? ??Screening/Special Tests:?Fall Risk?Screening:?No falls in the past year ?FALLS: Screening for Future Fall Risk?Have you had any falls with injury in the past year??No * Follow Up:?6 Months * Images: * Sign off status: Completed true * Provider:?Vibha Marquez DPM Date:? Generated for Mayank enriquez/Stephani/Murali on:?10/08/2024 10:33 AM EST History and Physical Notes * HPI (History of Present Illness) Category Sub-Category Detail Notes Category Not es Painful Nails Aggravated by: shoegear causing difficulty standing/walking Course: worse Location: Great toe, Right primitivo t Nature: aching, tender, disc olored, thick Treatments: none Examination Category Sub-Category Detail Notes Category Not es Ingrown Nail INSPECTION: Reveals nail inc urvation, pain on palpation, groove hypertrophy, Medial nail border, T5 Neurological SENSORY: Neurological exa m reveals intact sensorium, pain sensation normal, vibration sensation intact, pinprick sensation is normal in the lower extremities, Pt denies, anesthesia, burning, paresthesia, tingling, B/L Dermatologic SKIN FINDINGS: Skin exam reveal s normal texture, elasticity, and turgor. There are no masses. The interspaces are clear Orthopedic FOOTWEAR: good condition MUSCLE STRENGTH: 5/5 all groups in a symmetrical fashion , B/L General Examination GENERAL APPEARANCE: Reveals a pleasant, alert, well- nourished, well-developed, well hydrated individual, who demonstrates proper attention to hygiene/body habitus, and is in no acute distress, Pt serves as own historian for office visit today FOOT EXAM: Lower Extremity Neurological Exa m performed:: Yes Visual exam of foot performed:: Yes Date: 09/24/2024 ORIENTED: person, place, and t john Footwear Evaluation Footwear Evaluation performe d:: Yes Vascular DP PULSES (B): 3/4, B/L PT PULSES (B): 3/4, B/L CAPILLARY FILL TIME: immediate, all digi ts, B/L TEMPERTURE GRADIENT (C): warm to cool, p roximal to distal, B/L TROPHIC CONDITION-TEXTURE/ELASTICITY/TURGOR/HAIR GROWTH (B): normal, B/L EDEMA (C): 2/4, Right, Foot PIGMENTATION: normal, B/L Nails NAILS are: Elongated, overg rown, dystrophic, lytic, greater than 3mm thick, discolored and friable with crumbly malodorous subungual debris, with pain on palpation, TA, T1, T2, T3, T4, T5, T6, T7, T8, T9
--- OUTSIDE RECORDS SUMMARY | 2024-10-08 10:33 | XMS_ITS ---
Author Organization [facility] Address [address] [place] [address] Care Team Providers Care Junior Web Designer Name Role Phone Jim (RETIRED) Keshav GARCIA Primary Care Provid er Unavailable Keshav Singh Unavailable [phone] REASON FOR VISIT screening,fam hx colon ca Encounters Encounter Location Date Provider Diagnosis [facility] [address] [place] [phone] 06/20/2024 Keshav Singh PLAN OF TREATMENT Next Appt Details Provider Name:Keshav Singh , 10/24/2024 07:30:00 AM, [address] [place] [address], [phone],
--- OUTSIDE RECORDS SUMMARY | 2024-10-08 10:33 | XMS_ITS ---
Author Organization [facility] Address [address] [place] [address] Care Team Providers Care Clinical Data Associate Name Role Phone Edson Aj Primary Care Provider Vibha Marquez [phone] REASON FOR VISIT DIRECTOR INTELLIGENCE ANALYSIS PROGRAMS [facility] Entered Encounters Encounter Location Date Provider Diagnosis [address] [address] 09/09/2024 Vibha Marquez Plan Of Treatment Next Appt Details Provider Name:Vibha merritt, 03/24/2025 09:00:00 AM, [address] [place], [address], Progress Notes * Mayra TORO DDOB:1949 (74 yo F)Acc No.[id number]:09/09/2024 Patient:?Mayra TORO :1950???Age:74 Y???Sex:Female Address:[address] [place] [id number] * true * Date:? Generated for Mayank enriquez/Stephani/eTransmitting on:?10/08/2024 10:33 AM EST
--- OUTSIDE RECORDS SUMMARY | 2024-10-08 10:34 | XMS_ITS ---
Author Organization [facility] Address [address] [facility] [address] [place] [address] Care Team Providers Care Group Chief Operator Name Role Phone Jim (RETIRED) Keshav GARCIA Primary Care Provid er Unavailable Keshav Singh Unavailable [phone] REASON FOR VISIT Patient presents today for a recall colonoscopy Encounters Encounter Location Date Provider Diagnosis [facility] [address] [facility] [address] [place] [phone] 10/04/2023 Keshav Singh PLAN OF TREATMENT Next Appt Details Provider Name:Keshav Singh , 10/24/2024 07:30:00 AM, [address] [facility] , [place], [place], [phone],
--- OUTSIDE RECORDS SUMMARY | 2024-10-08 10:34 | XMS_ITS ---
Author Organization [facility] Address [address] [place] [address] Care Team Providers Care Government Professor Name Role Phone Jim (RETIRED) Keshav GARCIA Primary Care Provid er Unavailable Keshav Singh Unavailable [phone] ALLERGIES No Known Allergies REASON FOR VISIT Patient presents today for a COLON RECALL MEDICATIONS Medication SIG (Take, Route, Frequency, Duration) Notes Start Date End Date Status Atorvastatin Calcium 10 MG 1 tablet Oral ly Once a day Active Vitamin D2 1.25 1 tablet Orally TWIC E A WEEK Active IMMUNIZATIONS Vaccine Route Administration Date Status Comme nts Influenza Unknown 02/26/2024 Refused SOCIAL HISTORY Tobacco Use: Social History Observation Description Date Details (start date - stop date) Never Smoker NA - NA Sex Assigned At : Social History Observation Description Sex Assigned At Unknown Tobacco Use/Smoking Question Answer Notes Patient is a nonsmoker Alcohol Screen Question Answer Notes Did you [...] Points 1 Interpretation Negative VITAL SIGNS BMI 34.20 kg/m2 02/26/2024 Blood pressure systolic 000 mm Hg 02/26/20 24 Blood pressure diastolic 00 mm Hg 024 Height 62 in 02/26/2024 Temperature 97.3 degrees Fahrenheit 02/26/20 24 Weight 187 lbs 02/26/2024 Encounters Encounter Location Date Provider Diagnosis [facility] [address] [place] [address] 02/26/2024 Keshav Singh Family history of colon cancer Z80.0 and Encounter for screening for malignant neoplasm of colon Z12.11 ASSESSMENTS Encounter Date Diagnosis Assessment Notes Treatment Notes Treatment Clinical Notes 02/26/2024 Family history of colon cancer (ICD-10 - Z80.0) 02/26/2024 Encounter for screening for malignant neoplasm of colon (ICD-10 - Z12.11) PLAN OF TREATMENT Future Test Test Name Order Date COLONOSCOPY 02/26/2024 Next Appt Details Follow Up: prn, Reason: Provider Name:Keshav Singh , 10/24/2024 07:30:00 AM, [address] [place] [address] , [place], [place], [phone], Progress Notes * Examination Category Sub-Category Detail Notes General Examination GENERAL APPEARANCE: pleasant , well nourished, well developed, in no acute distress HEAD: EYES: sclera non-icteric EARS: NOSE: THROAT: NECK/THYROID: no cervical lymphade nopathy, neck supple HEART: S1, S2 normal CHEST: LUNGS: clear to auscultatio n bilaterally ABDOMEN: normal bowel sounds, no guarding or rigidity, no guarding or rigidity, no masses palpable, soft, nontender, nondistended NEUROLOGIC: alert and oriented SKIN: nonjaundiced, no spi shirlene angiomata EXTREMITIES: no edema PERIPHERAL PULSES: BACK: BREASTS: MUSCULOSKELETAL: MALE GENITOURINARY: LYMPH NODES: RECTAL EXAM: FEMALE GENITOURINARY: ORAL CAVITY: mucosa moist
--- OUTSIDE RECORDS SUMMARY | 2024-10-08 10:34 | XMS_ITS | Patient Health Record ---
Author Organization [facility] Address [address] [place] [address] Care Team Providers Care Traffic Administrator Name Role Phone Jim (RETIRED) Keshav GARCIA Primary Care Provid er Unavailable Francisco Keshav Unavailable [phone] ALLERGIES No Known Allergies REASON FOR REFERRAL No Information MEDICATIONS Medication SIG (Take, Route, Frequency, Duration) [...] Never (0 point) Points 1 Interpretation Negative PROBLEMS Problem Type ICD Code Onset Dates Problem Status W/U Status Risk SNOMED Code Notes Problem Family history of colon cancer (Z80.0) Active confirmed 805791181 Problem Encounter for screening for malignant neoplasm of colon (Z12.11) Active confirmed 392943796 Problem Preprocedural examination (Z01.818) Active confirmed [id number] VITAL SIGNS Temperature 97.3 degrees Fahrenheit 02/26/2024 Blood pressure diastolic 00 mm Hg 02/26/2024 Height 62 in 02/26/2024 Blood pressure systolic 000 mm Hg 02/26/2024 Weight 187 lbs 02/26/2024 BMI 34.20 kg/m2 02/26/2024 Encounters Encounter Location Date Provider Diagnosis [facility] Out[facility] [address] [place] [phone] 06/20/2024 Keshav Singh [facility] [address] [place] [address] 02/26/2024 Keshav Singh Family history of colon cancer Z80.0 and Encounter for screening for malignant neoplasm of colon Z12.11 ASSESSMENTS Encounter Date Diagnosis Assessment Notes Treatment Notes Treatment Clinical Notes 02/26/2024 Encounter for screening for malignant neoplasm of colon (ICD-10 - Z12.11) 02/26/2024 Family history of colon cancer (ICD-10 - Z80.0) PLAN OF TREATMENT Future Test Test Name Order Date COLONOSCOPY 02/07/2017 COLONOSCOPY 02/26/2024 Next Appt Details Provider Name:Keshav Singh , 10/24/2024 07:30:00 AM, [address] [facility] , [place], [place], [phone], Insurance Providers Payer Name Payer Address Payer Phone Subscriber Number Group Number Insured Name Patient Relationship to Insured Coverage Start Date Coverage End Date MEDICARE OF [place] [address] [place] [address] [id number] VINCE HECK Self - patient is the insured MEDEX ATTN CLAIMS [address] [place] [address] [id number] VINCE HECK Self - patient is the insured MEDICAL (GENERAL) HISTORY Medical History History ICD Code Denies DC,DM,CVA,Lung disease,renal dise ase Hyperlipidemia Colonoscopy in 2002--hyperpl astic polyp; negative colonoscopy in 10/2010 except for sigmoid diverticulosis and internal hemorrhoids Sleep apnea--uses CPAP Negative colonoscopy in 06/2017 Surgical History Surgery Date(Month/Year) Parathyroid removed
== END 2024-10-08 09:51 | disposition home or self-care (01) ==
LOC: HO.HMCSH 09:08
PROVIDERS: PCP Internal Medicine; Visit Provider Physician Assistant Medical
DX: M79.89 Other specified soft tissue disorders (principal); M79.604 Pain in right leg; E78.5 Hyperlipidemia, unspecified; E55.9 Vitamin D deficiency, unspecified; I10 Essential (primary) hypertension; D50.9 Iron deficiency anemia, unspecified; N39.41 Urge incontinence; G47.33 Obstructive sleep apnea (adult) (pediatric); E21.3 Hyperparathyroidism, unspecified; E66.9 Obesity, unspecified

== ENCOUNTER → 2024-10-08 09:08 | Outpatient (BNVA) | payer MEDICARE, SELFPAY | PROVIDERS: PCP Internal Medicine; Visit Provider Physician Assistant Medical | DX: M79.89 Other specified soft tissue disorders (principal); M79.604 Pain in right leg; E78.5 Hyperlipidemia, unspecified; E55.9 Vitamin D deficiency, unspecified; I10 Essential (primary) hypertension; D50.9 Iron deficiency anemia, unspecified; N39.41 Urge incontinence; G47.33 Obstructive sleep apnea (adult) (pediatric); E21.3 Hyperparathyroidism, unspecified; E66.9 Obesity, unspecified | CPT/HCPCS: 99202 ==

== ENCOUNTER 2024-10-24 06:14 | Day surgery (SDC) | payer MEDICARE, SELFPAY ==
[2024-06-18 12:09] VITALS: BMI 34.2
[2024-10-22 15:05] VITALS: BMI 34.2
--- NOTE | 2024-10-23 09:02 | HO.ANESPROP2 ---
Documented by User: Almita Bonilla NP 10/23/24 09:03 HPI - Anesthesia Eval Consult details Narrative: 74yo F for Upper Endoscopy and Colonoscopy [facility] Active Problems Active Problems: All Active Problems Obesity (BMI 30-39.9) (Acute) Throat irritation (Acute) General medical exam (Acute) Hyperparathyroidism (Acute) Hypercalcemia (Acute) Vitamin D deficiency (Acute) Obstructive sleep apnea (Acute) Urge urinary incontinence (Acute) Hypertension (Acute) Uterine fibroid (Acute) Iron deficiency anemia (Acute) Hyperlipidemia LDL goal <100 (Acute) Right leg swelling (Acute) Right leg pain (Acute) Past Medical History Medical History History of mammogram (~09/30/24) HARDY on CPAP Diverticulosis Elevated cholesterol Surgical History Surgical History Hx of parathyroidectomy H/O colonoscopy (~06/27/17) Social History Social History Household Members: Spouse Patient Tobacco Use Status: Never used Tobacco Use of substances other than those prescribed or required for medical reasons: No Are you DNR?: No Advance Directives: No Advance Directives Information Provided: Yes Meds Allergies Allergy/AdvReac Type Severity Reaction Status Date / Time No Known Allergies Allergy Unverified 10/08/24 09:55 [No Known Allergies*] Home Medications ?Medication ?Instructions ?Recorded ?Confirmed ?Last Taken ?Type ergocalciferol (vitamin D2) 1,250 1,250 mcg PO 2XW 06/18/24 10/08/24 Unknown History mcg (50,000 unit) capsule (Vitamin D2) atorvastatin 10 mg tablet 10 mg PO DAILY 10/22/24 10/22/24 Unknown History terbinafine HCl 250 mg tablet 250 mg PO DAILY 10/22/24 10/22/24 Unknown History Exam Height,Weight and Vital Signs: Height 5 ft 2 in Weight 84.822 kg Assessment and Plan Assessment Anesthesia Assessment: Chart Reviewed Documented by User: Shannon Lopez MD 10/24/24 07:30 PMFSH Past Medical History Medical History History of mammogram (~09/30/24) HARDY on CPAP Diverticulosis Elevated cholesterol Surgical History Surgical History Hx of parathyroidectomy H/O colonoscopy (~06/27/17) History of Problems with Anesthesia: No Social History Social History Household Members: Spouse Patient Tobacco Use Status: Never used Tobacco Use of substances other than those prescribed or required for medical reasons: No Are you DNR?: No Advance Directives: No Advance Directives Information Provided: Yes Meds Allergies Allergy/AdvReac Type Severity Reaction Status Date / Time No Known Allergies Allergy Unverified 10/08/24 09:55 [No Known Allergies*] Home Medications ?Medication ?Instructions ?Recorded ?Confirmed ?Last Taken ?Type ergocalciferol (vitamin D2) 1,250 1,250 mcg PO 2XW 06/18/24 10/08/24 Unknown History mcg (50,000 unit) capsule (Vitamin D2) atorvastatin 10 mg tablet 10 mg PO DAILY 10/22/24 10/22/24 Unknown History terbinafine HCl 250 mg tablet 250 mg PO DAILY 10/22/24 10/22/24 Unknown History Exam Airway Mallampati Class: III TM Dist: >3cm Neck ROM: Full Loose/Missing/Broken Teeth: No Heart: RRR Lungs: CTA Assessment and Plan Assessment Anesthesia Assessment: Anesthesia Plan Discussed Final Anesthetic Review History of Problems with Anesthesia: No NPO: Yes ASA Class: II Final Preanesthetic Review: Meds/Allgs Chart Reviewed, Consent Obtained/Reviewed and Anes Risks/Benef Reviewed Patient Risk: Low Procedure Risk: Intermediate Anesthetic Plan Anesthetic Plan: MAC: Disposition: Standard PACU
[2024-10-24 06:54] VITALS: BP 164/75; PULSE 67; RESP 20; TEMP 36.3; O2SAT 98; BMI 33.9
[2024-10-24] MEDS: Lactated Ringers 1,000 ML 100 ML IVCONT (07:04)
[2024-10-24 08:57] VITALS: BP 96/48; PULSE 58; RESP 18; TEMP 36.8; O2SAT 99
--- NOTE | 2024-10-24 09:00 | PM.OP ---
Brief Operative Note Date of Service: 10/24/24 Pre-op diagnosis: GERD, Screening Post-op diagnosis: other (Gastric ulcer, Hiatal hernia, R/O EoE, Colon polyps) Procedure: EGD with bx, Colonosocpy to the cecum with bx/removal of polyps and cold snare polypectomy of rectal polyp Surgeon: Keshav Singh MD Anesthesia: MAC Was an Electorate Officer used for this Procedure?: No Estimated blood loss (mL): 2.0 Pathology: other (A. Gastric antral ulcer B. Gastric antrum C. EG Junction at 38cm D. Esophagus at 20-25cm E. Cecal polyp F. Ascending colon polyp G. Polyps at 20cm H. Rectal polyp) Condition: stable Disposition: PACU
[2024-10-24 09:12] VITALS: BP 117/51; PULSE 57; RESP 18; O2SAT 97
[2024-10-24 09:27] VITALS: BP 127/75; PULSE 56; RESP 18; TEMP 36.3; O2SAT 99
--- NOTE | 2024-10-25 02:23 | OP_ITS ---
DATE OF SERVICE: 10/24/2024 SURGEON: Keshav Singh MD PREOPERATIVE DIAGNOSIS: POSTOPERATIVE DIAGNOSIS: PROCEDURE PERFORMED: Esophagogastroduodenoscopy with biopsies and colonoscopy to the cecum with biopsy and removal of polyps, and cold snare polypectomy. ESTIMATED BLOOD LOSS: COMPLICATIONS: ANESTHESIA: Medication used, monitored anesthesia care. ASSISTANTS: SPECIMENS: PREOPERATIVE DIAGNOSES: Question of gastroesophageal reflux, colorectal cancer screening. POSTOPERATIVE DIAGNOSES: Gastroesophageal reflux, colorectal cancer screening, gastric antral ulcer, gastritis, hiatal hernia, rule out eosinophilic esophagitis, colon polyps, diverticulosis, and internal hemorrhoids. INDICATION: The patient presents for evaluation of question of gastroesophageal reflux and colorectal cancer screening. Full consent was obtained from her for both procedures, including risks of bleeding and perforation. PROCEDURE IN DETAIL: The patient was placed in left lateral decubitus position. The Olympus video gastroscope was passed in the posterior oropharynx and upper esophagus under direct vision. The scope was passed slowly to the distal esophagus. The gastroesophageal junction appeared at 38cm. There was some mild irregularity consistent with reflux, but no definitive evidence of Fontanez's esophagus nor esophagitis. The scope easily entered the stomach. There was a small hiatal hernia. Scope was advanced to the pylorus. The duodenum was cannulated to the descending portion. The duodenum including the bulb appeared normal without mass or ulceration. Scope was withdrawn back to the stomach. The gastric antrum had areas of some edema and erythema as well as what appeared to be an approximately 15 mm ulcer along the greater curvature with some overlying eschar. There was no sign of any visible vessel, bleeding, nor mass. There was good peristalsis. The scope was retroflexed visualizing the proximal stomach carefully, which appeared normal, without any mass or ulceration, although there was some coffee-ground material in the proximal stomach. The scope was straightened. Biopsies were obtained from the margins of the gastric ulcer, as well as a separate set of biopsies from the gastric antrum. The scope was withdrawn back in the esophagus. Biopsies were obtained of the EG junction at 38 cm. Proximal to this, the esophageal mucosa appeared normal. I did obtain biopsies in the proximal esophagus to rule out eosinophilic esophagitis given her symptoms of increased mucus production and sense of both reflux and dysphagia. The scope was withdrawn from the patient. She was turned around for the colonoscopy. The digital rectal exam revealed no abnormalities. The Olympus video pediatric colonoscope was entered into the rectum, advanced easily to the cecum. Once in the cecum, I did identify cecal pouch with a normal-appearing appendiceal orifice and ileocecal valve. The entire cecum was well visualized. In the cecum was a flat 4 mm polyp, which was biopsied and completely removed with the cold biopsy forceps. There was transillumination of light deep in the right lower quadrant. The scope was then slowly withdrawn assessing all mucosal surfaces carefully. Preparation was excellent. In the ascending colon and at 20 cm were flat, less than 5 mm polyps, which were all biopsied and completely removed with cold biopsy forceps. In the rectum was an approximately 6 mm polyp, which was removed by cold snare polypectomy and recovered by suction. The polypectomy site appeared clean, without any sign of residual polyp, nor any significant bleeding. I did not visualize any other polyps, colitis, nor angiodysplasias throughout the colon. There was a mild amount of sigmoid diverticulosis. In the rectum, scope was retroflexed, visualizing small internal hemorrhoids, but no other pathology. The rectal mucosa appeared normal. Scope was straightened and withdrawn from the patient. She tolerated procedure well and was returned to recovery area in stable condition. IMPRESSION: 1. Colon polyps. 2. Diverticulosis. 3. Internal hemorrhoids. 4. Gastric ulcer. 5. Gastritis, rule out Helicobacter pylori. 6. Small hiatal hernia, gastroesophageal reflux. 7. Rule out eosinophilic esophagitis. PLAN: Results of biopsies will be checked. Given the finding of the ulcer, she has been advised to avoid all aspirin, NSAIDs long-term. She will start omeprazole 20 mg daily. She has been advised to chart picker some [id number] supply of the omeprazole until she receives her prescription from the pharmacy. She will be followed up in the office and plans will be made regarding possible followup upper endoscopy based on the biopsies and her clinical course. She should have a repeat colonoscopy in 5 years for further surveillance as well. This has all been discussed with her and she was given written instructions in this regard. MD KLARISSA Valerio/JOE / [id number] MTDEssie
== END 2024-10-24 09:59 | disposition home or self-care (01) ==
PROVIDERS: PCP Internal Medicine; Visit Provider Internal Medicine
PROC: (CPT 45385; principal; 2024-10-24 07:30)
DX: Z12.11 Encounter for screening for malignant neoplasm of colon (principal); Z80.0 Family history of malignant neoplasm of digestive organs; D12.0 Benign neoplasm of cecum; K57.30 Diverticulosis of large intestine without perforation or abscess without bleeding; D12.2 Benign neoplasm of ascending colon; K63.5 Polyp of colon; K62.1 Rectal polyp; K64.8 Other hemorrhoids; R13.10 Dysphagia, unspecified; K25.9 Gastric ulcer, unspecified as acute or chronic, without hemorrhage or perforation; K29.60 Other gastritis without bleeding; K21.9 Gastro-esophageal reflux disease without esophagitis; K44.9 Diaphragmatic hernia without obstruction or gangrene; E78.5 Hyperlipidemia, unspecified; G47.33 Obstructive sleep apnea (adult) (pediatric); Z99.89 Dependence on other enabling machines and devices; Z79.899 Other long term (current) drug therapy
CPT/HCPCS: 45385; 45380; 43239; 88305; 88313; 88342; J2003; J2704

== ENCOUNTER 2024-10-29 10:26 | Outpatient (REF) | payer MEDICARE, SELFPAY ==
--- NOTE | ~2024-10-29 | US_ITS ---
EXAMINATION: US TRIPLEX LOWER EXTREMITY, RIGHT CLINICAL INFORMATION: Pain and edema, right lower extremity. COMPARISON: None available. TECHNIQUE: Color-flow triplex imaging with spectral analysis and compression Doppler were performed on the right lower extremity. FINDINGS: Respiratory variation, normal compression and augmented flow are noted throughout the right lower extremity. The visualized common femoral vein, superficial femoral vein, profunda femoral vein, popliteal vein and midcalf peroneal and posterior tibial venous segments show no evidence of deep venous thrombosis. There is no Juarez's cyst. Questionable 1.5 cm hyperechoic abnormality in the medial side without flow on color Doppler interrogation. US/US venous duplex LE RT IMPRESSION: No acute deep venous thrombosis involving the right lower extremity. Negative exam. Electronically signed by: Vj Wharton MD 10/29/2024 11:51 AM BENNIE
--- OUTSIDE RECORDS SUMMARY | 2024-10-29 11:04 | XMS_ITS ---
Author Organization Keshav Fernandez DO, [facility] Address [address] [place], [place] [phone] Care Team Providers Care College Intern Name Role Phone Keshav Fernandez Primary Care Provider [phone] RESULTS Component Value Reference Range Notes Parathyroid Hormone Intact Reviewed date:04/03/2024 05:37:32 PM Interpretation:Normal Performing Lab:[facility], [address] [place] [id number] Notes/Report: Parathyroid Hormone Intact 67.4 8.7-77.1 pg/mL REASON FOR VISIT Refill and message MEDICATIONS Medication SIG (Take, Route, Frequency, Duration) Notes Start Date End Date Status Atorvastatin Calcium 10 MG 1 tablet Oral ly Once a day for 90 days Active Encounters Encounter Location Date Provider Diagnosis Keshav Fernandez DO, [facility] [address] [place], [place] [phone] 03/28/2024 Keshav Fernandez Hyperparathyroidism E21.3 ; Hypercholesterolemia [...]
--- OUTSIDE RECORDS SUMMARY | 2024-10-29 11:04 | XMS_ITS | Patient Health Record ---
Author Organization [facility] Address [address] [place] [address] Care Team Providers Care Home Management Supervisor Name Role Phone MIGEL MADRIGAL Primary Care Provider Keshav Lynch Unavailable [phone] ALLERGIES No Known Allergies RESULTS Component Value Reference Range Notes Pathology (Not yet reviewed by provider) Interpretation: Performing Lab:[facility], [address] [place] [phone] Notes/Report: REASON FOR REFERRAL No Information MEDICATIONS Medication SIG (Take, Route, Frequency, Duration) Notes Start Date End Date Status Omeprazole 20 MG 1 capsule 1/2 to 1 h our before morning meal Orally Once a day every morning for 90 days 10/24/2024 Active Atorvastatin Calcium 10 MG 1 tablet Oral [...] history of colon cancer (Z80.0) Active confirmed 054419988 Problem Encounter for screening for malignant neoplasm of colon (Z12.11) Active confirmed 144477083 Problem Preprocedural examination (Z01.818) Active confirmed 506005450 VITAL SIGNS Temperature 97.3 degrees Fahrenheit 02/26/2024 Blood pressure diastolic 00 mm Hg 02/26/2024 Height 62 in 02/26/2024 Blood pressure systolic 000 mm Hg 02/26/2024 Weight 187 lbs 02/26/2024 BMI 34.20 kg/m2 02/26/2024 Encounters Encounter Location Date Provider Diagnosis [facility] [address] [place], [place] [phone] 06/20/2024 Keshav Francisco [facility] [address] [place], [place] [phone] 10/24/2024 Keshav Singh [facility] [address] [place] [address] 02/26/2024 Keshav Singh Family history of colon cancer Z80.0 and Encounter for screening for malignant neoplasm of colon Z12.11 [facility] [address] [place] [address] 10/09/2024 Keshav Singh [facility] [address] [place] [address] 10/21/2024 Keshav Singh [facility] [address] [place] [address] 10/24/2024 Keshav Francisco ASSESSMENTS Encounter Date Diagnosis Assessment Notes Treatment Notes Treatment Clinical Notes 02/26/2024 Encounter for screening for malignant neoplasm of colon (ICD-10 - Z12.11) 02/26/2024 Family history of colon cancer (ICD-10 - Z80.0) PLAN OF TREATMENT Pending Test Test Name Order Date Pathology 10/24/2024 Future Test Test Name Order Date COLONOSCOPY 02/07/2017 COLONOSCOPY 02/26/2024 Next Appt Details Provider Name:Keshav Singh , 02/03/2025 02:40:00 PM, [address], [address], [place], [address], Insurance Providers Payer Name Payer Address Payer Phone Subscriber Number Group Number Insured Name Patient Relationship to Insured Coverage Start Date Coverage End Date MEDICARE OF [place] [address] [place] [address] [phone] [id number] GEORGIE VINCE Griggs Self - patient is the insured MEDEX ATTN CLAIMS [address] [place] [address] [id number] VINCE HECK Self - patient is the insured MEDICAL (GENERAL) HISTORY Medical History History ICD Code Denies ID,DM,CVA,Lung disease,renal dise ase Hyperlipidemia Colonoscopy in 2002--hyperpl astic polyp; negative colonoscopy in 10/2010 except for sigmoid diverticulosis and internal hemorrhoids Sleep apnea--uses CPAP Negative colonoscopy in 06/2017 Surgical History Surgery Date(Month/Year) Parathyroid removed
--- OUTSIDE RECORDS SUMMARY | 2024-10-29 11:04 | XMS_ITS ---
Author Organization [facility] Address [address] [place] [address] Care Team Providers Care Photovoltaic Technician Name Role Phone MIGEL MADRIGAL Primary Care Provider Keshav Lynch Unavailable [phone] REASON FOR VISIT screening, fam hx colon ca, dysphagia Encounters Encounter Location Date Provider Diagnosis [facility] [address] [place], [place] [phone] 10/24/2024 Keshav Singh PLAN OF TREATMENT Next Appt Details Provider Name:Keshav Singh , 02/03/2025 02:40:00 PM, [address], [address], [place], [address],
--- OUTSIDE RECORDS SUMMARY | 2024-10-29 11:04 | XMS_ITS ---
Author Organization Keshav Fernandez DO, [facility] Address [address] [place], [place] [phone] Care Team Providers Care Academic Support Center Director Name Role Phone Keshav Fernandez Primary Care Provider ALLERGIES No Known Allergies REASON FOR VISIT [...] Provider Diagnosis Keshav Fernandez DO, FACP [address] [place], [place] [phone] 04/09/2024 Keshav Fernandez Hypercholesterolemia E78.00 ; Hyperparathyroidism [...] General Examination GENERAL APPEARANCE: in no ac guicho distress, well developed, well nourished HEAD: normocephalic, atrau matic HEART: no murmurs, regular rate and rhythm, S1, S2 normal LUNGS: clear to auscultatio n bilaterally ABDOMEN: normal, bowel sounds present, soft, nontender, nondistended SKIN: warm and dry EXTREMITIES: no edema PSYCH: alert, oriented, cog nitive function intact
--- OUTSIDE RECORDS SUMMARY | 2024-10-29 11:04 | XMS_ITS ---
Author Organization [facility] Address [address] [place] [address] Care Team Providers Care Corporate Concierge Name Role Phone Edson Aj Primary Care Provider Vibha Marquez [phone] REASON FOR VISIT WEB ENGINEER PPWK Entered Encounters Encounter Location Date Provider Diagnosis [address] [address] 09/09/2024 Vibha Marquez Plan Of Treatment Next Appt Details Provider Name:Vibha merritt, 03/24/2025 09:00:00 AM, [address] [place], [address], Progress Notes * Mayra TORO DDOB:1949 (74 yo F)Acc No.[id number]:09/09/2024 Patient:?Mayra TORO :1950???Age:74 Y???Sex:Female Address:[address] [place] [address] * true * Date:? Generated for Mayank enriquez/Stephani/eTransmitting on:?10/29/2024 11:04 AM EST
--- OUTSIDE RECORDS SUMMARY | 2024-10-29 11:04 | XMS_ITS | Patient Health Record ---
Author Organization [facility] Address [address] [place] [address] Care Team Providers Care Hot Dimpling Machine Operator Name Role Phone Edson Aj Primary Care Provider Vibha Marquez Unavailable [phone] Allergies No Known Allergies Reason For Referral [...] Status Risk Notes Problem Acquired hallux valgus (98707989) Hallux valgus (acquired), right foot (M20.11) Active confirmed Vital Signs Blood pressure diastolic 82 mm Hg 09/24/2024 Height 5 ft 2 in in 09/24/2024 Blood pressure systolic 137 mm Hg 09/24/2024 Weight 185 lbs 09/24/2024 BMI 33.83 kg/m2 09/24/2024 Encounters Encounter Location Date Provider Diagnosis [facility] [address] [place] [address] 09/24/2024 Vibha Marquez Pain in right toe(s) M79.674 ; Onychomycosis B35.1 ; Pain in left toe(s) M79.675 and Ingrown nail L60.0 [facility] [place] [address] [place] [address] 09/09/2024 Vibha Marquez Assessments Encounter Date Diagnosis [...] X ray : Foot, right 2V 10/23/2012 46491-Sizbjlwn Plate 10/23/2012 33370-Anvxbmoe Plate 11/15/2016 67915-Muioirwj Plate 11/29/2016 14922- Debride <25 sq cm 11/29/2016 Next Appt Details Provider Name:Vibha merritt, 03/24/2025 09:00:00 AM, [address] [place], [address], Insurance Providers Payer Name Payer Address Payer Phone Subscriber Number Group Number Insured Name Patient Relationship to Insured Coverage Start Date Coverage End Date Medicare [facility] [address] [facility] [place] [address] [id number] Mayra Peguero Self - patient is the insured 7 [employer] Blue Shield [address] [place] [address] [phone] [id number] Mayra Peguero Self - patient is the insured Medical (General) History Medical History History ICD Code cholesterol chicken pox Anemia Measles Chicken pox Surgical History Surgery Date(Month/Year) parathyroid
--- OUTSIDE RECORDS SUMMARY | 2024-10-29 11:04 | XMS_ITS ---
Author Organization Keshav Fernandez DO, [facility] Address [address] [place], [place] [id number] Care Team Providers Care Pier Master Name Role Phone Keshav Fernandez Primary Care Provider REASON FOR VISIT 6 month f/u Encounters Encounter Location Date Provider Diagnosis Keshav Fernandez DO, FACP [address] [place] [phone] 10/08/2024 Keshav Fernandez PLAN OF TREATMENT No Information
--- OUTSIDE RECORDS SUMMARY | 2024-10-29 11:04 | XMS_ITS ---
Author Organization [facility] Address [address] [place] [address] Care Team Providers Care Display Decorator Name Role Phone Edson Aj Primary Care Provider [phone] Vibha Marquez Unavailable [phone] Allergies No Known Allergies REASON FOR VISIT [...] 025 Encounters Encounter Location Date Provider Diagnosis [facility] [address] [place] [address] 09/24/2024 Vibha Marquez Pain in right toe(s) [...] Reason: Provider Name:Vibha merritt, 03/24/2025 09:00:00 AM, [address] [place] [address], [phone], Procedure Notes * Category Sub-Category Detail Notes [...] Motrin was recommended for pain or discomfort (45651) Anesthesia 5cc of 1 percent Lid ocaine Plain local anesthesic utilizing aseptic technique Location Medial nail border, T5 Progress Notes * SHARLENEBrenne DDOB:1949 (74 yo F)Acc No.[id number]:09/24/2024 Progress Notes Patient:?Mayra TORO Provider:?Vibha Marquez DPM :1950???Age:74 Y???Sex:Female D ate:09/24/2024 Address:[address] [place] [address] [phone] Pcp:Edson Aj Subjective: * Chief Complaints: * [...] ?Exercise: no. ?Marital status: . 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 * Medications:?TakingAtorvasta tin Calcium Vitamin D3 Taking [...] Motrin was recommended for pain or discomfort (76927).? * Procedure Codes:?87112 Avuls ion Plate, Modifiers: XS * Preventive [...] Marquez DPM Date:? Generated for Mayank enriquez/Stephani/Murali on:?10/29/2024 11:04 AM EST History and Physical Notes * [...]
--- OUTSIDE RECORDS SUMMARY | 2024-10-29 11:05 | XMS_ITS | Patient Health Record ---
Author Organization Keshav Fernandez DO, FACP Address [address] [place], [place] [id number] Care Team Providers Care Sheet Heater Helper Name Role Phone Keshav Fernandez Primary Care Provider ALLERGIES No Known Allergies RESULTS Component Value Reference Range Notes Parathyroid Hormone Intact Reviewed date:04/03/2024 05:37:32 PM Interpretation:Normal Performing Lab:[facility], [address] [place] [phone] Notes/Report: Parathyroid Hormone Intact 67.4 8.7-77.1 pg/mL Complete Blood Count Auto Di ff Reviewed date:04/03/2024 05:41:57 PM Interpretation:Abnormal Performing Lab:[address] [address] Notes/Report: White Blood Count 6.3 4.8-10.8 X10*3/uL Red Blood Count 4.38 4.20-5.50 X10*6/uL Hemoglobin 13.8 12.0-16.0 g/dl Hematocrit 40.4 37.0-47.0 % Mean Corpuscular Volume 92.2 80.0-98.0 fL Mean Corpuscular Hemoglobin 31.5 27.0-33.0 pg Mean Corpuscular HGB Conc 34.2 31.0-35.0 g/dl Red Cell Distribution Width 12.9 11.0-16.0 % Platelet Count 267 160-400 X10*3/uL Mean Platelet Volume 10.4 9.4-12.3 fL Neutrophils Percent Auto 41.1 45-73 % Imm Gran Pct Auto 0.3 0.0-0.4 % Lymphocytes Percent Auto 45.7 20-40 % Monocytes Percent Auto 9.3 2-11 % Eosinophils Percent Auto 2.6 0-4 % Basophils Percent Auto 1.0 0-2 % NRBC Pct Auto 0.0 0.0-0.2 /100WBC Neutrophils Absolute Auto 2.6 2.0-8.3 x10*3/u L Imm Gran Abs Auto 0.02 0.00-0.03 X10*3/uL Lymphocytes Absolute Auto 2.9 1.2-4.9 X10*3/u L Monocytes Absolute Auto 0.6 0.1-1.2 X10*3/uL Eosinophils Absolute Auto 0.2 0.0-0.4 X10*3/u L Basophils Absolute Auto 0.1 0.0-0.2 X10*3/uL NRBC Abs Auto 0.000 0.0-0.012 X10*3/uL Comprehensive [place]. Panel Fa st Reviewed date:04/03/2024 05:41:10 PM Interpretation:Abnormal Performing Lab:[address] [address] Notes/Report: Sodium 141 135-145 mmol/L Potassium 4.1 3.3-5.1 mmol/L Chloride 107 96-108 mmol/L Carbon Dioxide 24 22-29 mmol/L Anion Gap 14 12-20 Blood Urea Nitrogen 19 9-16 mg/dL Creatinine 0.77 0.5-1.4 mg/dL Estimated Glomerular Filt Rate > 60 NOTE: For -Azerbaijani individuals, multiply the result by 1.210. Chronic Kidney Disease: Estimated GFR < 60 mL/min/1.73m2 Severe Kidney Disease: Estimated GFR < 15 mL/min/1.73m2 Glucose Fasting 96 60-99 mg/dL Calcium 9.4 8.4-10.2 mg/dL Bilirubin Total 0.6 0.0-1.0 mg/dL Aspartate Amino Transferase 21 5-31 U/L Alanine Aminotransferase 12 0-31 U/L Total Protein 7.8 6.5-8.0 g/dL Albumin Level 4.3 3.5-5.0 g/dL Alkaline Phosphatase 93 39-117 U/L Lipid Panel Reviewed date:04/03/2024 05:41:10 PM Interpretation:Normal Performing Lab:[facility] [address] Notes/Report: Triglycerides 107 <150 mg/dL Desirable Triglyceride: less than 150 mg/dL Borderline High Triglyceride 150-199 mg/dL High Triglyceride: 200-499 mg/dL Very High Triglyceride: greater than or equal to 5OO mg/dL Cholesterol 171 <200 mg/dL Desirable Cholesterol: less than 200 mg/dL Borderline High Cholesterol: 200-239 mg/dL High Cholesterol: greater than 239 mg/dL LDL Cholesterol Calculated 104 <100 mg/dL Desirable LDL: less than 100 mg/dL Near Optimal/Above Optimal LDL: 110-129 mg/dL Borderline High LDL: 130-159 mg/dL High LDL: 160-189 mg/dL Very High LDL: greater than or equal to 190 mg/dL HDL Cholesterol 46 >40 mg/dL Desirable HDL: greater than 40 mg/dL Note: This HDL assay may give artificially low results in patients with liver disease. Vitamin D 25-OH Total Reviewed date:04/03/2024 05:41:10 PM Interpretation:Normal Performing Lab:[address] [address] Notes/Report: Vitamin D 25-OH Total 37.5 >30 ng/mL Health Based Reference Values* < 20 ng/mL Deficient 20-30 ng/mL Insufficient > 30 ng/mL Sufficient *Joanna CHRISTIAN. N Engl J Med. 2007;357:266-280 Care must be taken in interpreting Vitamin D results from different laboratories and methodologies. Published data demonstrated that results from patients undergoing hemodialysis may show a negative bias when tested with various automated 25-OH vitamin D assays when compared to LC-MS/MS. When testing samples from patients whose predominant form of Vitamin D is Vitamin D2, such as patients receiving Vitamin D2 supplementation, results that are subtherapeutic should be confirmed with another method such as LC-MS/MS. Thyroid Stimulating Hormone Reviewed date:04/03/2024 05:41:10 PM Interpretation:Normal Performing Lab:[address] [address] Notes/Report: Thyroid Stimulating Hormone 1.40 0.32-4.0 uIU/ mL TSH 3rd Generation ([facility]) REASON FOR REFERRAL No Information MEDICATIONS Medication SIG (Take, Route, Frequency, Duration) Notes Start Date End Date Status Atorvastatin Calcium 10 MG 1 tablet Oral ly Once a day Active Vitamin D 2000 UNIT 1 capsule Orally Onc e a day 07/11/2017 Active IMMUNIZATIONS Vaccine Route Administration Date Status Comme nts Influenza IM Intramuscular 08/27/2013 Administered Influenza Quad IM Intramuscular 07/03/2017 Administered Pneumococcal - PPSV23 IM Intramuscular 07/11/2017 Administ ered Influenza Quad IM Intramuscular 08/21/2018 Administered Influenza High Dose IM Intramuscular 06/30/2021 Administer ed Influenza High Dose Unknown 06/10/2019 Administered COVID-19 Pfizer BioNTech Unknown 12/11/2020 Administere d COVID-19 Pfizer [employer] Unknown 11/20/2020 Administere d COVID-19 Pfizer [employer]NT[employer] Unknown 09/15/2021 Administere d Influenza Unknown 09/22/2015 Refused Influenza Unknown 08/16/2016 Refused Influenza Unknown 08/22/2023 Refused SOCIAL HISTORY Tobacco Use: Social History [...] W/U Status Risk SNOMED Code Notes Problem Other obesity due to excess calories (E66.09) Active confirmed 407060101 Problem Hypercalcemia (E83.52) Active confirmed 97198139 Problem Vitamin D insufficie ncy (E55.9) Active confirmed 064877180 Problem Hyperparathyroidism (E21.3) Active confirmed 37618330 Problem HARDY (obstructive sle ep apnea) (G47.33) Active confirmed 14798399 Problem Hypercholesterolemia (E78.00) Active confirmed 79547554 Problem Body mass index [BMI ] 32.0-32.9, adult (Z68.32) Active confirmed 164685484 VITAL SIGNS Blood pressure diastolic 80 mm Hg 04/09/2024 Height 61.50 in 04/09/2024 Blood pressure systolic 120 mm Hg 04/09/2024 Weight 187 lbs 04/09/2024 BMI 34.76 kg/m2 04/09/2024 Encounters Encounter Location Date Provider Diagnosis Keshav Fernandez DO, [facility] [address], [place] [phone] 04/09/2024 Keshav Fernandez Hypercholesterolemia E78.00 ; Hyperparathyroidism E21.3 ; HARDY (obstructive sleep apnea) G47.33 and Vitamin D insufficiency E55.9 Keshav Fernandez , [facility] [address], [place] [phone] 10/08/2024 Keshav Fernandez , [facility] [address], [place] [phone] 03/28/2024 Keshav Fernandez Hyperparathyroidism E21.3 ; Hypercholesterolemia E78.00 and Vitamin D insufficiency E55.9 ASSESSMENTS Encounter Date Diagnosis Assessment Notes Treatment Notes Treatment Clinical Notes 04/09/2024 Hyperparathyroidism (ICD-10 - E21.3) PTH and calcium levels are normal 04/09/2024 Hypercholesterolemia (ICD-10 - E78.00) 03/28/2024 Hyperparathyroidism (ICD-10 - E21.3) 03/28/2024 Hypercholesterolemia (ICD-10 - E78.00) 04/09/2024 HARDY (obstructive sle ep apnea) (ICD-10 - G47.33) CPAP nightly 03/28/2024 Vitamin D insufficie ncy (ICD-10 - E55.9) 04/09/2024 Vitamin D insufficie ncy (ICD-10 - E55.9) PLAN OF TREATMENT Pending Test Test Name Order Date PFT WITH DLCO 04/18/2023 Insurance Providers Payer Name Payer Address Payer Phone Subscriber Number Group Number Insured Name Patient Relationship to Insured Coverage Start Date Coverage End Date MEDICARE [address] [place] [phone] [id number] Mayra Peguero Self - patient is the insured MEDEX [address] [place] [address] [phone] [id number] Mayra Peguero Self - patient is the insured MEDICAL (GENERAL) HISTORY Medical History History ICD Code hypercholesterolemia iron deficiency anemia uterine fibroids menopause (prior menorrhagia) hypertension urge urinary incontinence onychomycosis chronic tonsillitis obstructive sleep apnea on nightly CPAP vitamin D deficiency hypercalcemia hyperparathyroidism Surgical History Surgery Date(Month/Year) endometrial biopsy left superior parathyroidectomy 12/2017
--- OUTSIDE RECORDS SUMMARY | 2024-10-29 11:05 | XMS_ITS ---
Author Organization [facility] Address [address] [place] [address] Care Team Providers Care Neonatal Specialist Name Role Phone MIGEL MADRIGAL Primary Care Provider Keshav Lynch Unavailable [phone] MEDICATIONS Medication SIG (Take, Route, Fr equency, Duration) Notes Start Date End Date Status Omeprazole 20 MG 1 capsule 1/2 to 1 h our before morning meal Orally Once a day every morning for 90 days 10/24/2024 Active Encounters Encounter Location Date Provider Diagnosis [facility] [address] [place] [phone] 10/24/2024 Keshav Singh PLAN OF TREATMENT Medication Medication Name Sig Start Date Stop Date Notes Omeprazole 20 MG 1 capsule 1/2 to 1 h our before morning meal Orally Once a day every morning for 90 days 10/24/2024 Next Appt Details Provider Name:Keshav Singh , 02/03/2025 02:40:00 PM, [address] [place] [address], [address], [place], [address],
--- OUTSIDE RECORDS SUMMARY | 2024-10-29 11:05 | XMS_ITS ---
Author Organization [facility] Address [address] [place] [address] Care Team Providers Care Channel Sales Manager Name Role Phone MIGEL MADRIGAL Primary Care Provider Keshav Lynch Unavailable [phone] REASON FOR VISIT endoscopy Encounters Encounter Location Date Provider Diagnosis [facility] [address] [place] [address] 10/21/2024 Keshav Singh PLAN OF TREATMENT Next Appt Details Provider Name:Keshav Singh , 02/03/2025 02:40:00 PM, [address], [address], [place], [address],
== END 2024-10-29 10:27 | disposition home or self-care (01) ==
LOC: HO.US 10:26
PROVIDERS: PCP Internal Medicine; Visit Provider Physician Assistant Medical
DX: M79.604 Pain in right leg (principal); M79.89 Other specified soft tissue disorders; E78.5 Hyperlipidemia, unspecified
CPT/HCPCS: 93971

== ENCOUNTER → 2024-10-29 10:27 | Outpatient (BNV) | payer MEDICARE, SELFPAY | PROVIDERS: PCP Internal Medicine; Visit Provider Radiology Diagnostic Radiology | DX: R22.41 Localized swelling, mass and lump, right lower limb (principal) | CPT/HCPCS: 93971 ==

== ENCOUNTER 2025-05-01 09:18 | Day surgery (SDC) | payer MEDICARE, SELFPAY ==
[2025-04-29 13:50] VITALS: BMI 33.3
--- NOTE | 2025-04-30 12:05 | HO.ANESPROP2 ---
Documented by User: Almita Bonilla NP 04/30/25 12:06 HPI - Anesthesia Eval Consult details Narrative: 75yo F for Upper Endoscopy s/p EGD and COlo 10/2024 with MAC [facility] Active Problems Active Problems: All Active Problems Obesity (BMI 30-39.9) (Acute) Throat irritation (Acute) General medical exam (Acute) Hyperparathyroidism (Acute) Hypercalcemia (Acute) Vitamin D deficiency (Acute) Obstructive sleep apnea (Acute) Urge urinary incontinence (Acute) Hypertension (Acute) Uterine fibroid (Acute) Iron deficiency anemia (Acute) Hyperlipidemia LDL goal <100 (Acute) Right leg swelling (Acute) Right leg pain (Acute) Past Medical History Medical History History of mammogram (~09/30/24) HARDY on CPAP Diverticulosis Elevated cholesterol Surgical History Surgical History History of esophagogastroduodenoscopy (EGD) Hx of parathyroidectomy H/O colonoscopy (~06/27/17) History of Problems with Anesthesia: No Social History Social History Household Members: Spouse Patient Tobacco Use Status: Never used Tobacco Meds Allergies Allergy/AdvReac Type Severity Reaction Status Date / Time No Known Allergies (No Known Allergy Unverified 10/08/24 09:55 Allergies*) Home Medications ?Medication ?Instructions ?Recorded ?Confirmed ?Last Taken ?Type ergocalciferol (vitamin D2) 1,250 1,250 mcg PO 2XW 06/18/24 10/08/24 Unknown History mcg (50,000 unit) capsule (Vitamin D2) atorvastatin 10 mg tablet 10 mg PO DAILY 10/22/24 04/29/25 Unknown History terbinafine HCl 250 mg tablet 250 mg PO DAILY 10/22/24 10/22/24 Unknown History Exam Height,Weight and Vital Signs: Height 5 ft 2 in Weight 82.554 kg Assessment and Plan Assessment Anesthesia Assessment: Chart Reviewed Final Anesthetic Review History of Problems with Anesthesia: No Documented by User: Karey Browne MD 05/01/25 08:45 PMFSH Past Medical History Medical History History of mammogram (~09/30/24) HARDY on CPAP Diverticulosis Elevated cholesterol Family History Family history of problems with anesthesia: No Surgical History Surgical History History of esophagogastroduodenoscopy (EGD) Hx of parathyroidectomy H/O colonoscopy (~06/27/17) Social History Social History Household Members: Spouse Patient Tobacco Use Status: Never used Tobacco Meds Allergies Allergy/AdvReac Type Severity Reaction Status Date / Time No Known Allergies (No Known Allergy Unverified 10/08/24 09:55 Allergies*) Home Medications ?Medication ?Instructions ?Recorded ?Confirmed ?Last Taken ?Type ergocalciferol (vitamin D2) 1,250 1,250 mcg PO 2XW 06/18/24 10/08/24 Unknown History mcg (50,000 unit) capsule (Vitamin D2) atorvastatin 10 mg tablet 10 mg PO DAILY 10/22/24 04/29/25 Unknown History terbinafine HCl 250 mg tablet 250 mg PO DAILY 10/22/24 10/22/24 Unknown History Exam Airway Mallampati Class: II TM Dist: >3cm Neck ROM: Limited Heart: rrr Lungs: cta Assessment and Plan Assessment Anesthesia Assessment: Anesthesia Plan Discussed Final Anesthetic Review Family History of Problems with Anesthesia: No NPO: Yes ASA Class: II Final Preanesthetic Review: No Changes in Pt Med Stat, Meds/Allgs Chart Reviewed, Consent Obtained/Reviewed and Anes Risks/Benef Reviewed Patient Risk: Low Anesthetic Plan Anesthetic Plan: MAC: Disposition: Standard PACU
[2025-05-01 09:30] VITALS: BMI 34.0
[2025-05-01 09:34] VITALS: BP 147/87; PULSE 59; RESP 16; TEMP 36.3; O2SAT 96
[2025-05-01] MEDS: Lactated Ringers 1,000 ML 100 ML IVCONT (09:50)
[2025-05-01 11:00] VITALS: BP 117/62; PULSE 65; RESP 16; TEMP 36.1; O2SAT 92
--- NOTE | 2025-05-01 11:06 | P.BOP_ITS ---
Brief Operative Note Date of Service: 05/01/25 Pre-op diagnosis: Gastric ulcer Post-op diagnosis: other (Gastritis) Procedure: EGD with biopsies Surgeon: Keshav Singh MD Anesthesia: MAC Was an Diamond Sizer And Grader used for this Procedure?: No Estimated blood loss (mL): 2.0 Pathology: other (A. Gastric antrum) Condition: stable Disposition: PACU
[2025-05-01 11:15] VITALS: BP 132/78; PULSE 55; RESP 20; TEMP 36.6; O2SAT 98
--- NOTE | 2025-05-01 11:25 | OP_ITS ---
DATE OF SERVICE: 05/01/2025 SURGEON: Keshav Singh MD INDICATIONS: The patient presents for followup of gastric ulcer. Full consent has been obtained from her for this, including risks of bleeding and perforation. PREOPERATIVE DIAGNOSIS: History of gastric ulcer POSTOPERATIVE DIAGNOSIS: PROCEDURE PERFORMED: Esophagogastroduodenoscopy with biopsies. ESTIMATED BLOOD LOSS: COMPLICATIONS: ANESTHESIA: Monitored anesthesia care. ASSISTANTS: SPECIMENS: POSTOPERATIVE DIAGNOSES: History of gastric ulcer, mild gastritis, hiatal hernia. DESCRIPTION OF PROCEDURE: The patient was placed in left lateral decubitus position. The Olympus video gastroscope was passed in the posterior oropharynx and upper esophagus under direct vision. The scope was passed slowly to the distal esophagus. The gastroesophageal junction appeared normal at 38 cm. There was no sign of any esophagitis nor Fontanez esophagus. There was a small hiatal hernia. The scope was advanced to pylorus and duodenum was cannulated to the descending portion. The duodenum including the bulb appeared normal without mass or ulceration. The scope was withdrawn back into the stomach. The gastric antrum and body had some mild gastritis with erythema and edema, but there was no evidence of ulcer disease. There was no mass. There was good peristalsis. The scope was retroflexed visualizing the proximal stomach carefully, which appeared normal without any sign of mass or ulceration. Scope was straightened. Biopsies were obtained from the gastric antrum. The scope was withdrawn back into the esophagus. The esophageal mucosa appeared normal. The scope was withdrawn from the patient. She tolerated the procedure well and was returned to the recovery area in stable condition. IMPRESSION: 1. Healed gastric ulcer. 2. Mild gastritis. 3. Small hiatal hernia. PLAN: The results of biopsies will be checked. At this point, I do not think she will need any further upper endoscopies. She is currently not using any particular medication for her stomach, but I did advise her to use some over the counter PPI or Pepto Bismol as needed She did stop her omeprazole after the office visit back in January. She will be due for a colonoscopy in 2029. She will otherwise see me on a p.r.n. basis. MD KLARISSA Valerio/JOE / [id number] MOE
== END 2025-05-01 11:50 | disposition home or self-care (01) ==
PROVIDERS: PCP Internal Medicine; Visit Provider Internal Medicine
PROC: 0DJ08ZZ Inspection of Upper Intestinal Tract, Via Natural or Artificial Opening Endoscopic (ICD-10-PCS; CPT 43235; principal; 2025-05-01 10:30)
DX: K29.50 Unspecified chronic gastritis without bleeding (principal); Z87.11 Personal history of peptic ulcer disease; K44.9 Diaphragmatic hernia without obstruction or gangrene; E78.5 Hyperlipidemia, unspecified; G47.33 Obstructive sleep apnea (adult) (pediatric); Z79.899 Other long term (current) drug therapy; Z99.89 Dependence on other enabling machines and devices; Z98.890 Other specified postprocedural states
CPT/HCPCS: 43239; 88305; 88313; 88342; J2704

== ENCOUNTER 2025-06-05 07:04 | Outpatient (REF) | payer MEDICARE, SELFPAY ==
[2025-06-05 10:10] LABS: MANUAL DIFF FLAG NO
[2025-06-05 10:44] LABS: Hematocrit 41.5 % (37.0-47.0); Hemoglobin 13.8 g/dl (12.0-16.0); Imm Gran Abs Auto 0.01 X10*3/uL (0.00-0.03); Imm Gran Pct Auto 0.2 % (0.0-0.4); Lymphocytes Absolute Auto 3.1 X10*3/uL (1.2-4.9); Mean Corpuscular HGB Conc 33.3 g/dl (31.0-35.0); Mean Corpuscular Hemoglobin 30.9 pg (27.0-33.0); Mean Corpuscular Volume 93.0 fL (80.0-98.0); NRBC Abs Auto 0.000 X10*3/uL (0.0-0.012); NRBC Pct Auto 0.0 /100WBC (0.0-0.2); Platelet Count 295 X10*3/uL (160-400); Red Blood Count 4.46 X10*6/uL (4.20-5.50); White Blood Count 6.3 X10*3/uL (4.8-10.8)
[2025-06-05 10:58] LABS: Hemoglobin A1C 158.1000 umol/L; Total Hemoglobin (HGBA1C) 3521.9489 umol/L
[2025-06-05 11:27] LABS: Alanine Aminotransferase 16 U/L (0-31); Albumin Level 4.4 g/dL (3.5-5.0); Alkaline Phosphatase 97 U/L (39-117); Anion Gap 14 (12-20); Aspartate Amino Transferase 31 U/L (5-31); Blood Urea Nitrogen 13 mg/dL (9-16); Calcium 9.6 mg/dL (8.4-10.2); Carbon Dioxide 27 mmol/L (22-29); Chloride 106 mmol/L (96-108); Cholesterol 262 mg/dL (<200); Estimated Glomerular Filt Rate > 60; HDL Cholesterol 51 mg/dL (>40); Magnesium 2.4 mg/dL (1.6-2.6); Potassium 4.5 mmol/L (3.3-5.1); Sodium 142 mmol/L (135-145); Total Protein 7.7 g/dL (6.5-8.0); Triglycerides 156 mg/dL (<150)
[2025-06-05 11:31] LABS: Folate 9.9 ng/mL (> or = 4.0); Vitamin B12 417 pg/mL (200-900)
== END 2025-06-05 07:05 | disposition home or self-care (01) ==
LOC: HO.HMGCLDS 07:04
PROVIDERS: PCP Internal Medicine; Visit Provider Physician Assistant Medical
DX: Z00.00 Encounter for general adult medical examination without abnormal findings (principal); Z13.1 Encounter for screening for diabetes mellitus; Z13.29 Encounter for screening for other suspected endocrine disorder; Z13.6 Encounter for screening for cardiovascular disorders; Z13.21 Encounter for screening for nutritional disorder
CPT/HCPCS: 36415; 80053; 80061; 80076; 82248; 82306; 82607; 82746; 83036; 83735; 84443; 85025

== ENCOUNTER 2025-06-09 11:17 | Outpatient (AMB) | payer MEDICARE, SELFPAY ==
--- NOTE | 2025-06-09 11:20 | A.OFFPC_ITS ---
Vital Signs 06/09/25 11:34 Height 5 ft 1.81 in Weight 186 lb BMI 34.2 BP 182/74 H Respiration 14 Pulse 66 Pulse Source Pulse Oximeter Temp 97.5 F Temp Source Temporal Artery Scan Pulse Oximetry (%) 96 Oxygen Delivery Method Room Air Intake Visit Reasons: follow up labs - see comments [employer] Required: No Accompanied by: Self / Same As Patient Allergies No Known Allergies (No Known Allergies*) Allergy (Verified 06/09/25 11:22) Tobacco use date assessed: 06/09/25 Fall risk assessment: No Falls in past year Last assessed Fall Risk: 06/09/25 Dental Screening Dental Screen Date: 06/09/25 Did you have a dental visit in the last 12 months?: Yes Did you have a dental problem in the last 6 months where you did not have access to dental care?: No Was dental information given to patient?: Patient has dentist [facility] Medical History Pure hypercholesterolemia, unspecified Pre-diabetes Anemia History of mammogram (~09/30/24) HARDY on CPAP Diverticulosis Elevated cholesterol Surgical History History of esophagogastroduodenoscopy (EGD) Hx of parathyroidectomy H/O colonoscopy (~06/27/17) Social History (Updated 06/09/25 @ 11:38 by YOEL Quijano) Household Members: Spouse Housing: House Alcohol intake: current Alcohol intake frequency: holidays/special occasions only Patient Tobacco Use Status: Never used Tobacco service: No Current occupational status: retired Cognitive needs: No Hearing needs: No Vision needs: Yes (rx glasses) Questionnaire PHQ-9 Over the last 2 weeks, how often have you been bothered by any of the following problems? 1. Little interest or pleasure in doing things: not at all 2. Feeling down, depressed, or hopeless: not at all 3. Trouble falling or staying asleep, or sleeping too much: not at all 4. Feeling tired or having little energy: not at all 5. Poor appetite or overeating: not at all 6. Feeling bad about yourself - or that you are a failure or have let yourself or your family down: not at all 7. Trouble concentrating on things, such as reading the newspaper or watching television: not at all 8. Moving or speaking so slowly that other people could have noticed. Or the opposite - being so fidgety or restless that you have been moving around a lot more than usual: not at all 9. Thoughts that you would be better off or of hurting yourself in some way: not at all Total score: 0 Source: Developed by Drs. Keshav Castanon, Louise Lancaster, Damon Antonio and colleagues, with an educational amaris from [employer]. Thrive Questionnaire Date Thrive assessed: 06/09/25 I am a: Patient What is your living situation today?: I have a steady place to live Within the past 12 months, did the food you bought not last and you didn't have the money to get more?: Never true Within the past 12 months, did you worry whether your food would run out before you got money to buy more?: Never true Do you have trouble paying for medicines?: No Do you have trouble getting transportation to medical appointments?: No Do you have trouble paying your heating and electricity bill?: No Do you have trouble taking care of your child, family member or friend?: No Do you have trouble with day-to-day activities such as bathing, preparing meals, shopping, managing finances, etc.?: No Are you currently unemployed and looking for a job?: No Are you interested in more education?: No Please select the resources that you would like help with: None THRIVE Score: 0 AUDIT C Alcohol Use Questionnaire (AUDIT-C) 1. How often do you have a drink containing alcohol?: Monthly or less 2. How many drinks containing alcohol do you have on a typical day when you are drinking?: 1 or 2 3. How often do you have six or more drinks on one occasion?: Never Total Score: 1 ARACELI-7 AMB Questionnaire ARACELI-7 Date ARACELI - 7 assessed: 06/09/25 Feeling nervous, anxious, or on edge: 0 = Not at all Not being able to stop or control worryin = Not at all Worrying too much about different things: 0 = Not at all Trouble relaxin = Not at all Being so restless that it is hard to sit still: 0 = Not at all Becoming easily annoyed or irritable: 0 = Not at all Feeling afraid as if something awful might happen: 0 = Not at all Total ARACELI-7 score (0-4 normal; 5-9 mild; 10-14 moderate; 15-21 severe): 0 Source: Developed by Drs. Keshav Castanon, Louise Lancaster, Damon Antonio and colleagues, with an educational amaris from [employer]. Physical exam (Primary Care) Vital Signs: Last Vital Signs Temp 97.5 F 06/09/25 11:34 Pulse 66 06/09/25 11:34 Resp 14 06/09/25 11:34 BP 182/74 H 06/09/25 11:34 Pulse Ox 96 06/09/25 11:34 Oxygen Delivery Method Room Air 06/09/25 11:34 BMI result Body Mass Index 34.2 Tobacco/Smoking Status: Tobacco use Status Tobacco use date assessed 06/09/25 06/09/25 11:23 Patient Tobacco Use Status Never used Tobacco 06/09/25 11:38 PHQ-9: PHQ-9 Score PHQ-9: Total score 0 06/09/25 11:23 Thrive Assessment: Date of Thrive Assessment Date Thrive assessed 06/09/25 06/09/25 11:23 Office Procedures Flu Questionnaire Does the patient have a severe egg allergy?: No Does the patient have severe life threatening allergies?: No Does the patient have a fever or illness today?: No Has the patient ever had Guillain-[place] Syndrome?: No Has the patient ever had any past reaction to a flu shot?: No Immunizations Fluarix [id number] (PF) 45 mcg (15 mcg x 3)/0.5 mL IM syringe Performing Provider: Edson Aj MD [place] [facility] [place] [facility] Documented (not given) by: YOEL Quijano on 06/09/25 11:38 Reason Not Given: Patient Refused Coding Assessment & Plan Assessment & Plan Orders: Orders Influenza [id number] Immunization Today Z23 - Encounter for immunization
[2025-06-09 11:34] VITALS: BP 182/74; PULSE 66; RESP 14; TEMP 36.4; O2SAT 96; BMI 34.2
== END 2025-06-09 11:58 | disposition home or self-care (01) ==
LOC: HO.HMCSH 11:17
PROVIDERS: PCP Internal Medicine; Visit Provider Internal Medicine
DX: Z23 Encounter for immunization (principal)

== ENCOUNTER → 2025-06-09 11:17 | Outpatient (BNVA) | payer MEDICARE, SELFPAY | PROVIDERS: PCP Internal Medicine; Visit Provider Internal Medicine | DX: I10 Essential (primary) hypertension (principal); E78.5 Hyperlipidemia, unspecified; M17.10 Unilateral primary osteoarthritis, unspecified knee; R60.0 Localized edema; Z28.21 Immunization not carried out because of patient refusal | CPT/HCPCS: 90471; 96127; 99212 ==